=== PATIENT | female | born 1985 | race African-American/Black ===

== ENCOUNTER 2022-03-04 07:20 | Inpatient (IN) | payer MEDICAID ==
[~2022-03-04] VITALS: Ht 165.1 cm; Wt 58.5 kg
[2022-03-04 07:20] VITALS: BP_SYST 142
--- NOTE | 2022-03-04 07:21 | NUR ---
BROUGHT BACK TO BED #8 AND TRIAGED. REPORT GIVEN TO TAWNY
[2022-03-04] MEDS ORDERED: fentaNYL CITRATE/PF 100 MCG/2 ML AMP IM ONE (07:30)
[2022-03-04] MEDS ORDERED: METOCLOPRAMIDE HCL 10 MG/2 ML VIAL IM ONE (07:30)
[2022-03-04] MEDS ORDERED: HALOPERIDOL LACTATE 5 MG/ML VIAL IM ONE (07:30)
[2022-03-04] MEDS ORDERED: DIPHENHYDRAMINE INJ 50 MG/ML VIAL IM ONE ×2 (07:30→08:00)
--- NOTE | 2022-03-04 07:30 | NUR ---
Pt bib parent from home CC hyperemesis pt c/o nausea and continual vomiting episodes since this morning at 0500. Pt is shallow breathing 44 resp. calming measures provided. cap refill <3sec. aaox4, parent is bed side. History of type 1 diabetes. BS 141.
--- NOTE | 2022-03-04 08:00 | NUR ---
ER at bedside examining patient.
--- NOTE | 2022-03-04 08:30 | NUR ---
fDifficulty with IV start, vascular system with collapsed sites, tracks and scar tissue on bilateral extremities. Shunt to right side intact. RLQ dexadron in place. MD notified difficulty with IV start, will give IM injectables.
--- NOTE | 2022-03-04 09:00 | NUR ---
RX fentanyl given per MD orders wasted 50 mg witnessed by Pharmacist.
[2022-03-04 09:05] LABS: BASOPHILS # (AUTO) 0.1 K/uL (0.0-0.2); BASOPHILS % (AUTO) 0.5 % (0.0-2.0); EOSINOPHILS # (AUTO) 0.3 K/uL (0.0-0.4); HEMATOCRIT 36.1 % (36-48); HEMOGLOBIN 12.4 g/dL (12.0-16.0); LYMPHOCYTES # (AUTO) 1.8 K/uL (1.0-5.5); LYMPHOCYTES % (AUTO) 16.4 % (20.5-51.5); MEAN CORPUSCULAR HEMOGLOBIN 28 pg (27-31); MEAN CORPUSCULAR HGB CONC 34 % (32-36); MEAN CORPUSCULAR VOLUME 82 fL (79.0-98.0); MONOCYTES # (AUTO) 1.1 K/uL (0.0-1.0); MONOCYTES % (AUTO) 9.7 % (1.7-9.3); NEUTROPHILS # (AUTO) 7.7 K/uL (1.8-7.7); NEUTROPHILS % (AUTO) 70.4 % (40.0-70.0); PLATELET COUNT (AUTO) 123 K/uL (130-430); RED BLOOD CELL COUNT(AUTO) 4.42 MIL/uL (4.2-6.2); RED CELL DISTRIBUTION WIDTH 16.7 % (9.0-15.0)
[2022-03-04 09:44] LABS: ALANINE AMINOTRANSFERASE 18 U/L (12-78); ANION GAP 5 (5-15); ASPARTATE AMINOTRANSFERASE 17 U/L (10-37); CALCIUM 9.1 mg/dL (8.4-11.0); CHLORIDE 99 mmol/L (98-107); CREATININE 7.09 mg/dL (0.55-1.30); GFR AFRICAN AMERICAN 8 mL/min (>90); GLUCOSE 116 mg/dL (70-99); POTASSIUM 3.7 mmol/L (3.5-5.1); TOTAL BILIRUBIN 0.3 mg/dL (0.0-1.0); UREA NITROGEN, BLOOD 38 mg/dL (8-21)
[2022-03-04 09:45] LABS: ALBUMIN 3.6 g/dL (3.4-4.8)
--- NOTE | 2022-03-04 09:59 | NUR ---
Pt at rest with bed down rails up.
[2022-03-04] MEDS ORDERED: HYDROcodone/ACETAMIN 5-325 MG TAB (NORCO/ VICODIN) PO ONE (10:00)
[2022-03-04] MEDS ORDERED: ACETAMINOPHEN 325 MG TABLET PO ONE (10:00)
[2022-03-04] MEDS ORDERED: ONDANSETRON 4 MG ODT TAB PO ONE (11:30)
--- NOTE | 2022-03-04 11:35 | NUR ---
Pt awake and c/o back pain, given pain medication per dr. madden. Mother Angelina called available at [phone]. call for ride home upon discharge.
--- NOTE | 2022-03-04 13:11 | NUR ---
pt aaox4 resting without acute distress. PICC line consent given.
--- NOTE | 2022-03-04 14:08 | NUR ---
Admit bed requested Patient will be admitted to care of . Admitted to Med surg unit. Diagnosis Intractable Nausea vomiting Inpatient (Yes or No) yes Observation (Yes or No) no Orientation concerns or request close to nursing station (Yes or No) no Covid Status pending On vent or bipap no Isolation requirements no Needs a sitter no From Home (Yes or if No enter name of facility) yes Requires Dialysis (Yes or No) yes Med Rec Completed (Yes of No) yes
--- NOTE | 2022-03-04 15:16 | NUR ---
notified Phenergan IM unavailable injectable. changed to PO.
[2022-03-04] MEDS ORDERED: PROMETHAZINE HCL 25 MG TABLET PO PRN (15:30)
[2022-03-04 15:38] LABS: LIPASE 67 U/L (73-393)
[2022-03-04] MEDS: METOCLOPRAMIDE HCL 10 MG/2 ML VIAL IVP PRN ×2 (16:26→16:39)
[2022-03-04] MEDS: ONDANSETRON HCL 4 MG/2 ML VIAL IVP PRN (16:40)
--- NOTE | 2022-03-04 16:44 | NUR ---
CONSULTATION PAGED/CALLED Reason for Consultation: [] ELEVATED BUN AND CREA Person Who was Notified: [] KRISTAL Consulting Physician: [] DR CONRAD Inspector Watch Assembly Specialty: [] THERAPIST RADIATION Ordering Physician: [] DR SPENCE
--- NOTE | 2022-03-04 16:50 | NUR ---
CONSULTATION PAGED/CALLED Reason for Consultation: [] INTRACTABLE N/V Person Who was Notified: [] KRISTAL Consulting Physician: [] DR GIRALDO Shuttle Buggy Operator Specialty: [] GI Ordering Physician: [] DR SPENCE
[2022-03-04 16:53] VITALS: BP_SYST 155
[2022-03-04] MEDS ORDERED: AMLO5TAB4 PO (16:54)
[2022-03-04] MEDS ORDERED: HYDROcodone/ACETAMIN 5-325 MG TAB (NORCO/ VICODIN) PO PRN (17:00)
--- NOTE | 2022-03-04 17:06 | NUR ---
Patient will be admitted to care of MD Adams. Admitted to Med Surg unit. Will go to room 125 BISH given report, Complete and up to date summary report printed with opportunity for questions.
--- NOTE | 2022-03-04 17:45 | NUR ---
pt admitted to med surg. Pt c/o 03/01 abd pain. pt aox4 able to make needs known. pupils uneven. L eye sluggish. 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 rr even and unlabored. Lung sounds clear. pt has access on R chest. Pt has av shunt to [place]. pt has blood sugar device on abd. no wounds to pt backside. Pulses present. Pt has small open abrasion on ankle. Pt refused pictures to be taken. Pt was prescribed Toradol ivp for sereve pain and was educated that stated she will not get Diluadid or Morphone for pain at this time. All other needs meet at this time. will continue to monitor. ( Had a second nurse in room during assessment and belonging inventory). (Alec Parikh)
[2022-03-04] MEDS: INSULIN REGULAR, HUMAN 100 UNITS/ML, 3 ML VIAL (humuLIN R) SUBCUT PRN ×2 (18:20→22:36)
[2022-03-04] MEDS: KETOROLAC TROMETHAMINE 15 MG VIAL IVP PRN (18:39)
[2022-03-04 19:35] VITALS: BP_SYST 158
--- NOTE | 2022-03-04 21:14 | NUR ---
CONSULTATION CALLED FOR DR. Elver CONRAD FOR CONSULT OF NAUSEA VOMITING ORDER BY DR. SPENCE SPOKE WITH KRISTAL
--- NOTE | 2022-03-04 21:21 | NUR ---
CONSULTATION CALLED FOR DR. Candie YOUNGER FOR CONSULT OF NAUSEA VOMITING DR. GIRALDO IS NATURAL HISTORY COLLECTIONS CURATOR ORDER BY DR. SPENCE SPOKE WITH KRISTAL
[2022-03-04 21:28] LABS: ALBUMIN 3.2 g/dL (3.4-4.8); BILIRUBIN,DIRECT 0.1 mg/dL (0.0-0.3); TOTAL BILIRUBIN 0.3 mg/dL (0.0-1.0)
--- NOTE | 2022-03-04 21:50 | NUR ---
MED PASS, IV=939 BLOOD SUGAR CHECK AT THIS TIME IS 378, 10 UNITS OF REGULAR INSULIN GIVEN PER SSI ORDERED BY MD. PATIENT TOLERATED WELL. WILL CONTINUE TO MONITOR.
[2022-03-05] VITALS: BP_SYST 150
--- NOTE | 2022-03-05 02:30 | NUR ---
nichole talley approximately at this time Addendum: 03/06/22 at 0828 by Francisco Bates RN incorrect dcumentation tis happened 03/06 not 03/05
[2022-03-05] MEDS: KETOROLAC TROMETHAMINE 15 MG VIAL IVP PRN (02:31)
[2022-03-05] MEDS: ONDANSETRON HCL 4 MG/2 ML VIAL IVP PRN (02:31)
--- NOTE | 2022-03-05 02:35 | NUR ---
CRITICAL BLOOD SUGAR= 40 PATIENT VERBALIZED SHE FEELS HYPOGLYCEMIC, BLOOD SUGAR CHECK AT THIS TIME IS 40. ORANGE JUICE GIVEN, BLOOD SUGAR RECHECK IS 118. WILL CONTINUE TO MONITOR. DR. SPENCE PAGED, AWAITING CALL BACK.
--- NOTE | 2022-03-05 05:54 | NUR ---
CRITICAL BLOOD SUGAR= 435 PATIENT VERBALIZED SHE FEELS HYPERGLYCEMIC, BLOOD SUGAR CHECK AT THIS TIME IS 435. 12 UNITS REGULAR INSULIN GIVEN PER SSI ORDERED BY MD. WILL CONTINUE TO MONITOR. DR. SPENCE PAGED THREE TIMES NOW, AWAITING CALL BACK.
[2022-03-05] MEDS: INSULIN REGULAR, HUMAN 100 UNITS/ML, 3 ML VIAL (humuLIN R) SUBCUT PRN ×3 (05:59→16:55)
[2022-03-05] MEDS: METOCLOPRAMIDE HCL 10 MG/2 ML VIAL IVP PRN (06:03)
--- NOTE | 2022-03-05 06:28 | NUR ---
PAGED DR. SPENCE @ 6:28AM FOR RN. REASON: CRITICAL RESULTS
--- NOTE | 2022-03-05 06:50 | NUR ---
CLOSING NOTE ATTEMPTED TO PAGE DR. SPENCE FOUR TIMES FOR FOR PATIENT'S TWO CRITICAL BLOOD SUGARS. AT THIS TIME, IS IS RESTING IN BED, STABLE, NO SIGNS OF RESPIRATORY DISTRESS. CALL LIGHT WITHIN REACH. BED IS LOCKED, ALARMED, AND AT THE LOWEST LEVEL. WILL CONTINUE TO MONITOR UNTIL SHIFT REPORT IS GIVEN AT BEDSIDE TO AM NURSE.
--- NOTE | 2022-03-05 07:03 | NUR ---
receive the patient from the night guard rn in a stable condition with admitting diagnosis of intractable nausea and vomiting . no complain of pain at this time . no sign and symptoms of respiratory distress . will continue to monitor
--- NOTE | 2022-03-05 07:10 | NUR ---
COMMUNICATION W/ DR. JENNYFER BURGER PAGED AT THIS TIME FOR UPDATE ON PATIENT, IT WAS COMMUNICATED TO MD THAT PATIENT IS STILL NAUSEOUS AND VOMITING. MD VERBALIZED THAT HE WILL HAVE HIS G.I. TEAM PICK PATIENT UP IN 30 MINS-1HOUR FOR EGD. CONSENT IS PRINTED, AND ENDORSED TO AM NURSE PUJA.
[2022-03-05 07:43] LABS: BILIRUBIN,URINE NEGATIVE (NEGATIVE); BLOOD, URINE NEGATIVE (NEGATIVE); CLARITY/URINE CLEAR (CLEAR); COLOR,URINE YELLOW (YELLOW); GLUCOSE,URINE 3+ (NEGATIVE); KETONES,URINE NEGATIVE (NEGATIVE); LEUKOCYTE ESTERASE ,URINE NEGATIVE (NEGATIVE); NITRITE, URINE NEGATIVE (NEGATIVE); PROTEIN URINE 3+ (NEGATIVE); UROBILINOGEN,URINE 0.2 (0.2-1.0)
[2022-03-05] MEDS ORDERED: fentaNYL CITRATE/PF 100 MCG/2 ML AMP ONE ×2 (07:49→08:17)
[2022-03-05] MEDS ORDERED: MIDAZOLAM HCL 5 MG/5 ML VIAL ONE ×2 (07:50→08:17)
[2022-03-05 07:54] LABS: BARBITURATE, URINE NEGATIVE (NEG <=200); BENZODIAZEPINE, URINE NEGATIVE (NEG <=150); CANNABINOID, URINE POSITIVE (NEG <=50); COCAINE, URINE NEGATIVE (NEG <=150); METHAMPHETAMINES SCREEN,URINE NEGATIVE (NEG <=500); OPIATE, URINE POSITIVE (NEG <=100); PHENCYCLIDINE SCREEN,URINE NEGATIVE (NEG <=25); UR TRICYCLIC ANTIDEPRESSANTS NEGATIVE (NEG <=300); URINE AMPHETAMINE NEGATIVE (NEG <=500); URINE METHADONE NEGATIVE (NEG <=200); URINE OXYCODONE SCREEN NEGATIVE (NEG <=100); URINE PROPOXYPHENE SCREEN NEGATIVE (NEG <=300)
[2022-03-05] MEDS ORDERED: SIMETHICONE 40 MG/0.6 ML ML ONE (07:58)
[2022-03-05 08:00] VITALS: BP_SYST 146
[2022-03-05] MEDS ORDERED: DIPHENHYDRAMINE INJ 50 MG/ML VIAL ONE (08:00)
--- NOTE | 2022-03-05 08:03 | NUR ---
patient was pickling drum operator for n EGD . tolerated the procedure
[2022-03-05] MEDS ORDERED: PANTOPRAZOLE SODIUM 40 MG/VIAL (PROTONIX) IVP ONE (09:00)
[2022-03-05] MEDS ORDERED: PANTOPRAZOLE SODIUM 40 MG/VIAL (PROTONIX) IVP SCH (09:00)
--- NOTE | 2022-03-05 10:03 | NUR ---
patient has abdominal ultrasound . tolerated the procedure
--- NOTE | 2022-03-05 10:10 | NUR ---
the patient had an order for clear liquid diet
--- NOTE | 2022-03-05 19:01 | NUR ---
will endorse to shift boss rn for continuity of care
--- NOTE | 2022-03-05 19:15 | NUR ---
OPENING NOTES Patient resting in bed - no s/s pain or distress noted. Respirations even and unlabored - head of bed elevated. IV sites patent - no s/s redness, infection, or infiltration. Bed locked and in lowest position. Call light within reach. Bed alarm on.
[2022-03-05 20:00] VITALS: BP_SYST 157
--- NOTE | 2022-03-05 20:12 | NUR ---
DARY GIRALDO AT THIS TIME
--- NOTE | 2022-03-05 20:31 | NUR ---
Dr. Da Silva called back Asked for diet advanced as tolerable Dr. Da Silva orders mechanical soft diet advance as tolerable
[2022-03-06] VITALS (17 sets, daily range): BP systolic 114–212
--- NOTE | 2022-03-06 | NUR ---
around this time hemodialysis finished 2.5 liters out
[2022-03-06] MEDS: KETOROLAC TROMETHAMINE 15 MG VIAL IVP PRN ×2 (02:24→07:37)
[2022-03-06] MEDS: METOCLOPRAMIDE HCL 10 MG/2 ML VIAL IVP PRN ×2 (02:24→13:50)
--- NOTE | 2022-03-06 02:30 | NUR ---
patient vomitting uncontrollably needs new iv its not working
--- NOTE | 2022-03-06 03:30 | NUR ---
PAGED DR. AREN YOUNGER PAGED AT THIS TIME FOR PATIENT'S PRIMARY RN. AWAITING CALL BACK.
--- NOTE | 2022-03-06 04:39 | NUR ---
PAGED DR. AREN YOUNGER PAGED AT THIS TIME FOR PATIENT'S PRIMARY RN, DOCTOR LIMA IS ECDIS N NAVIGATION OPERATOR. AWAITING CALL BACK.
--- NOTE | 2022-03-06 05:00 | NUR ---
new iv inserted 24g r pinky done by Margarito DENG old IV not working
[2022-03-06] MEDS: ONDANSETRON HCL 4 MG/2 ML VIAL IVP PRN ×4 (05:05→22:07)
[2022-03-06] MEDS: INSULIN REGULAR, HUMAN 100 UNITS/ML, 3 ML VIAL (humuLIN R) SUBCUT PRN ×2 (05:30→18:09)
--- NOTE | 2022-03-06 05:33 | NUR ---
checked bloodsugar at this time per glucometer, above [address] kennedy 12u regular insulin already given at this time
--- NOTE | 2022-03-06 06:00 | NUR ---
patient blood sugar above 600 unreadable in glucometer placed bmp stat paging dr. kennedy at this time due to critical lab
--- NOTE | 2022-03-06 06:53 | NUR ---
Dr. Dunaway calls back after paging Dr. Torre critical lab blood sugar above [address] Dunaway stat labs have been drawn awaiting glucose levels Dr. Dunaway orders to follow up with glucose levels and to call back and notify Dr. Adams Awaiting callback from Dr. Adams still
--- NOTE | 2022-03-06 07:00 | NUR ---
Patient in extreme discomfort - moaning from nausea and vomitting brown emesis seemingly getting darker since 219. Dr. Adams and GI doctor been paged and awaiting call back ever since. IV site patent - r pinky 24g SL. Bed locked and in lowest position but patient frequently roaming t he hallway near her room - needs to be frequently reoriented to her room. Addendum: 03/06/22 at 828 by Francisco Bates RN these are closing notes Addendum: 03/06/22 at 828 by Francisco Bates RN blood sugar checked approximately q15min after approximately 0530 to follow up as we wait for callback from doc
--- NOTE | 2022-03-06 07:28 | NUR ---
opening note Patient is awake and alert walking in room and hallway's vomiting coffee ground emesis. rapid was call due to blood sugar unable to read at bed side greater then 600. patient is still actively vomiting anti nausea medication were given prior. at 0750 patient was transferred to ICU report was endorsed to ICU nurse with all patents belongings.
[2022-03-06] MEDS ORDERED: COMMUNICATION ORDER XX ONE ×2 (07:45→11:15)
[2022-03-06 07:46] LABS: CREATININE 5.45 mg/dL (0.55-1.30); POTASSIUM 4.7 mmol/L (3.5-5.1)
--- NOTE | 2022-03-06 07:50 | NUR ---
TO ICU RECEIVED PT IN ROOM 6, VIA BED, SHE IS ALERT AND ANXIOUS, EMESIS BAG TO HER HAND, RETCHING AND COMPLAINING OF STOMACH PAIN. SHE ASKED FOR DILAUDID, BENADRYL AND COMPAZINE. SHE WAS MEDICATED WITH TORADOL AT [facility]PT. PT CAME IN WITH BLOOD SUGAR 747.
[2022-03-06] MEDS ORDERED: INSULIN REGULAR, HUMAN 100 UNITS in NS 99 ML IV PRN ×2 (08:00)
--- NOTE | 2022-03-06 08:09 | NUR ---
PAGED DR. PARKS SAYED STAT FOR RN. [phone] IS THE ONLY NUMBER PROVIDED WITH NO EXCHANGE TO VAULT MAKER CALL. LEFT A DETAILED MESSAGE ON OFFICE NUMBER. WILL LET ICU NURSE KNOW SO A FOLLOW UP CAN BE MADE.
--- NOTE | 2022-03-06 08:16 | NUR ---
IV DRIPS INITIATED INSULIN DRIP TO 5 UNIT/HR, IV IN RIGHT HAND, 24 GAUGE CATHETER.
--- NOTE | 2022-03-06 08:27 | NUR ---
Called Dr. Adrian Page's cell phone and left a message regarding an urgent consult. Called [phone]. Pt now complaining of chest pain right after I hung the phone up.
--- NOTE | 2022-03-06 08:30 | NUR ---
Called Dr. Adams through his exchange at [phone] and requested an urgent call back regarding pts new c/o chest pain. Pt has continuous wretching, screaming "help me, help me, Nurse". Vomiting dark think liquid. Insulin drip infusing at 5u/hr at this time per bedside nurse.
--- NOTE | 2022-03-06 08:42 | NUR ---
MIG WELDER SPOKE TO DR PARKS SAYED. HE ORDERED TO START THE INSULIN DRIP TO 5 UNITS PER HR, AND GIVE 15 UNITS INSULIN IVP BOLUS.
[2022-03-06] MEDS ORDERED: INSULIN REGULAR, HUMAN 10 UNITS/0.1 ML, 3 ML VIAL IVP ONE (08:45)
--- NOTE | 2022-03-06 08:50 | NUR ---
MD DR SPENCE CALLED. REPORTED PT'S CURRENT COMPLAINTS. CHEST PAIN, PAIN MEDS. NEW ORDERS RECEIVED.
[2022-03-06] MEDS ORDERED: MORPHINE 4 MG INJ. 4 MG/ML VIAL IVP PRN (09:00)
[2022-03-06] MEDS ORDERED: ACETAMINOPHEN 325 MG TABLET PO PRN (09:00)
[2022-03-06] MEDS: PANTOPRAZOLE SODIUM 40 MG/VIAL (PROTONIX) IVP SCH (09:23)
--- NOTE | 2022-03-06 09:43 | NUR ---
SENIOR ELECTRICAL PROJECT MANAGER DR BUI CAME IN AND EXAMINED THE PATIENT.
[2022-03-06 09:44] LABS: BASOPHILS # (AUTO) 0.1 K/uL (0.0-0.2); BASOPHILS % (AUTO) 0.7 % (0.0-2.0); EOSINOPHILS # (AUTO) 0.1 K/uL (0.0-0.4); EOSINOPHILS % (AUTO) 0.7 % (0.0-4.0); HEMATOCRIT 34.6 % (36-48); HEMOGLOBIN 11.6 g/dL (12.0-16.0); LYMPHOCYTES % (AUTO) 12.6 % (20.5-51.5); MEAN CORPUSCULAR HEMOGLOBIN 28 pg (27-31); MEAN CORPUSCULAR HGB CONC 34 % (32-36); MEAN CORPUSCULAR VOLUME 84 fL (79.0-98.0); MONOCYTES # (AUTO) 0.4 K/uL (0.0-1.0); MONOCYTES % (AUTO) 4.8 % (1.7-9.3); NEUTROPHILS # (AUTO) 6.6 K/uL (1.8-7.7); NEUTROPHILS % (AUTO) 81.2 % (40.0-70.0); PLATELET COUNT (AUTO) 149 K/uL (130-430); RED BLOOD CELL COUNT(AUTO) 4.11 MIL/uL (4.2-6.2); RED CELL DISTRIBUTION WIDTH 16.9 % (9.0-15.0)
[2022-03-06] MEDS ORDERED: DIPHENHYDRAMINE INJ 50 MG/ML VIAL IVP ONE (09:45)
[2022-03-06 09:46] LABS: WHITE BLOOD COUNT (AUTO) 8.2 K/uL (4.8-10.8)
--- NOTE | 2022-03-06 09:50 | NUR ---
MD DR PARKS-SAYED AT BEDSIDE EXAMINING PATIENT.
[2022-03-06] MEDS: HYDROmorphone 1 MG/ML INJ. CARTRIDGE IM PRN ×2 (09:57→14:22)
[2022-03-06] MEDS ORDERED: NALOXONE HCL 0.4 MG/ML AMP (NARCAN) IVP PRN (10:00)
[2022-03-06] MEDS ORDERED: DIPHENHYDRAMINE HCL 12.5 MG/5 ML UDC PO PRN (10:00)
--- NOTE | 2022-03-06 10:05 | NUR ---
Dr. PARKS Sayed in to see pt and orders left. Pt stopped wretching when doctors came to see her. Remains SR/ST on monitor with BP 161/109 and bedside RN aware of BP. Dr Higgins saw the patient and left orders for BP medications.
--- NOTE | 2022-03-06 10:07 | NUR ---
IV DRIPS FSBS 202 MG/DL, REPORTED TO DR PARKS SAYED. HE ORDERED TO DROP THE INSULIN TO 2 UNIT/HR AND CARRIED OUT.
--- NOTE | 2022-03-06 10:14 | NUR ---
TEST ECHOCARDIOGRAM CREAM GATHERER AT BEDSIDE.
[2022-03-06] MEDS ORDERED: CARV25TA55 PO (10:15)
[2022-03-06] MEDS ORDERED: INSU100V9 SQ (10:15)
--- NOTE | 2022-03-06 10:35 | NUR ---
REST PT WITH EYES CLOSED, COMFORTABLE AT THIS HOUR.
[2022-03-06] MEDS: METOPROLOL TARTRATE 5 MG/5 ML VIAL IVP PRN (11:17)
[2022-03-06] MEDS: NACL 0.9% 1,000 ML IV SCH (11:33)
[2022-03-06] MEDS: DEXTROSE 50% JECT 50 ML DISP.SYRIN IVP PRN (12:18)
--- NOTE | 2022-03-06 12:18 | NUR ---
FSBS 51 MG/DL, TURNED OFF INSULIN DRIP, 1 AMP DEXTROSE 50% GIVEN IVP.
--- NOTE | 2022-03-06 12:33 | NUR ---
FSBS BLOOD SUGAR 161 MG/DL AFTER D50.
--- NOTE | 2022-03-06 13:55 | NUR ---
Pt requested medication for nausea. Medicated with Reglan 10mg IVP. Pt instructed me that I can just push it in. I informed that I am giving it the way our policy indicates. Pt continued dry heaves/ wretching right after giving medication. Bedside RN made aware of medication given.
--- NOTE | 2022-03-06 14:05 | NUR ---
FSBS PAGED DR PARKS SAYED TO NOTIFY HIM OF LATEST BLOOD SUGAR 241 MG/DL.
[2022-03-06] MEDS ORDERED: INSULIN NPH 100 UNITS/ML 10 ML VIAL SUBCUT ONE (14:45)
--- NOTE | 2022-03-06 19:00 | NUR ---
RECEIVED AAO, FOLLOWS COMMANDS, SITTING , ON RA, SAT 97%, NO RESPIRATORY DIFFICULTY. BUSINESS SYSTEMS ADVISOR IS SHOWING NST, DENIES CHEST PAIN. IVF OF NS IS INFUSING AT 50 ML/HR ON THE RIGHT WRIST, GA # 24, POSITIONAL . ABDOMEN SOFT AND NON-DISTENDED.
--- NOTE | 2022-03-06 23:00 | NUR ---
Received report and assumed care from nightshift nurse going home at this time. As per report "Call Dr Maurice when BS >200"
[2022-03-07] VITALS (19 sets, daily range): BP systolic 142–227
[2022-03-07] MEDS: METOCLOPRAMIDE HCL 10 MG/2 ML VIAL IVP PRN ×2 (02:01→14:09)
[2022-03-07] MEDS: HYDROmorphone 1 MG/ML INJ. CARTRIDGE IM PRN ×4 (02:02→14:37)
--- NOTE | 2022-03-07 02:16 | NUR ---
Patient awake and agitated with episodes of vomiting and dry hives. Requesting "pain medication and nausea medication". Dilaudid 1 mg IVP and Reglan 10 mg IVP given as per MD orders. will continue to monitor patient for medication effectiveness.
[2022-03-07] MEDS: ONDANSETRON HCL 4 MG/2 ML VIAL IVP PRN ×2 (06:05→20:53)
[2022-03-07] MEDS: NACL 0.9% 1,000 ML IV SCH (06:08)
--- NOTE | 2022-03-07 06:44 | NUR ---
Blood glucose at this time 295. Dr Christy-Sayed contacted to report blood glucose >200. Per Dr Christy-Sayed "I asked only to report when patient's blood glucose >200 only while patient is on insulin drip. Since the patient is not on insulin drip, that order is discontinued". Please continue to cover blood glucose with already ordered sliding scale plus scheduled NPH.
[2022-03-07] MEDS: INSULIN REGULAR, HUMAN 100 UNITS/ML, 3 ML VIAL (humuLIN R) SUBCUT PRN (06:58)
[2022-03-07] MEDS: INSULIN NPH 100 UNITS/ML 10 ML VIAL SUBCUT SCH (06:58)
[2022-03-07 07:50] LABS: HEMOGLOBIN 11.4 g/dL (12.0-16.0); MEAN CORPUSCULAR HEMOGLOBIN 28 pg (27-31); MEAN CORPUSCULAR HGB CONC 33 % (32-36); MEAN CORPUSCULAR VOLUME 83 fL (79.0-98.0); PLATELET COUNT (AUTO) 170 K/uL (130-430); RED BLOOD CELL COUNT(AUTO) 4.09 MIL/uL (4.2-6.2)
[2022-03-07 07:53] LABS: ALBUMIN 3.8 g/dL (3.4-4.8); CALCIUM 9.1 mg/dL (8.4-11.0); CREATININE 7.36 mg/dL (0.55-1.30); POTASSIUM 4.8 mmol/L (3.5-5.1); THYROID STIMULATING HORMONE 1.92 uIu/mL (0.34-4.82); TOTAL BILIRUBIN 0.4 mg/dL (0.0-1.0)
[2022-03-07] MEDS: PANTOPRAZOLE SODIUM 40 MG/VIAL (PROTONIX) IVP SCH (09:00)
[2022-03-07] MEDS ORDERED: PROCHLORPERAZINE MALEATE 25 MG/SUPP.RECT EA RC PRN (09:15)
[2022-03-07] MEDS ORDERED: CARVEDILOL 12.5 MG TABLET (COREG) PO ONE (09:15)
--- NOTE | 2022-03-07 09:25 | NUR ---
Spoke with Dr. Dunaway and received renal clearance for a midline to be placed. dance instructor RN, bedside RN and MST RN attempted to start an IV, unsuccessfully. Vein finder used.
--- NOTE | 2022-03-07 09:35 | NUR ---
Compazine supp given as ordered for nausea and vomiting.
[2022-03-07] MEDS ORDERED: PROCHLORPERAZINE MALEATE 25 MG/SUPP.RECT EA RC ONE (09:36)
--- NOTE | 2022-03-07 09:48 | NUR ---
Pt refused linen change at this time. Family in to visit and bedside RN updated them in front of the patient.
[2022-03-07] MEDS: DIPHENHYDRAMINE INJ 50 MG/ML VIAL IVP PRN (10:41)
[2022-03-07] MEDS ORDERED: cloNIDine HCL 0.3 MG/24 HR PATCH.TDWK TD ONE (11:00)
[2022-03-07] MEDS ORDERED: cefTRIAXone 1 GM in D5W 50 ML IV SCH (12:00)
[2022-03-07] MEDS ORDERED: PIPERACILLIN/TAZO 2.25G/DEX-IS 50 ML IV ONE (12:30)
[2022-03-07] MEDS ORDERED: GLUCOSE (DEXTROSE) ORAL GEL -Adults PO ONE (12:30)
[2022-03-07 13:43] LABS: ATYPICAL LYMPHOCYTES % 0 % (0-0); BAND % (MANUAL) 1 % (0-6); BASOPHILS % (MANUAL) 0 % (0-2); EOSINOPHILS % (MANUAL) 1 % (0-7); LYMPHOCYTES % (MANUAL) 38 % (20-46); MONOCYTES % (MANUAL) 11 % (0-11)
[2022-03-07] MEDS: METOPROLOL TARTRATE 5 MG/5 ML VIAL IVP PRN (14:16)
--- NOTE | 2022-03-07 16:04 | NUR ---
patient transfer from ICU to 134A with admitting diagnosisi of diabetic ketoacidosis . aox3 with episode of confusion . no complain of pain at this time . no sign and symptoms of respiratory distress . will continue to monitor
[2022-03-07] MEDS: PIPERACILLIN/TAZO 2.25G/DEX-IS 50 ML IV SCH (16:56)
--- NOTE | 2022-03-07 17:20 | NUR ---
Patient transferred to Telemetry Rm. 134A for alternate level of care. Patient tolerated transfer without incident with report given to ISH Ghotra. End of care.
--- NOTE | 2022-03-07 19:02 | NUR ---
will endorse to shift production supervisor rn for continuity of care
--- NOTE | 2022-03-07 20:00 | NUR ---
RECEIVED PATIENT IN BED, A/O X4 , NO DISTRESS NOTED, RIGHT CHEST KARTHIKEYAN CATH INTACT ACCESS TO HD, HUMBLE SHUNT IS NOT READY TO USE, MIDLINE AT SPRING FOR IVF NS AT 50 ML/HR, SITE IS INTACT. NO C/O PAIN AT THIS TIME.
[2022-03-07] MEDS: HYDROmorphone 1 MG/ML INJ. CARTRIDGE IVP PRN (20:51)
[2022-03-07] MEDS: CARVEDILOL 12.5 MG TABLET (COREG) PO SCH (20:54)
--- NOTE | 2022-03-07 22:08 | NUR ---
BS 112 NO COVERAGE AT THIS TIME. SNACK PROVIDED.
[2022-03-08] VITALS: BP_SYST 148
[2022-03-08] MEDS: PIPERACILLIN/TAZO 2.25G/DEX-IS 50 ML IV SCH ×6 (00:49→23:22)
[2022-03-08] MEDS: DIPHENHYDRAMINE INJ 50 MG/ML VIAL IVP PRN ×2 (00:49→21:35)
--- NOTE | 2022-03-08 03:09 | NUR ---
PATIENT IS SLEEPING AFTER BENADRYL GIVING PER PATIENT 'S REQUEST FOR INSOMNIA.
[2022-03-08] MEDS: ONDANSETRON HCL 4 MG/2 ML VIAL IVP PRN ×3 (04:14→21:35)
[2022-03-08] MEDS: HYDROmorphone 1 MG/ML INJ. CARTRIDGE IVP PRN ×4 (04:15→21:34)
--- NOTE | 2022-03-08 04:23 | NUR ---
PATIENT C/O BACK PAIN 8/10 AND NAUSEA, DILAUDID 1 MG AND ZOFRAN 4 MG IVP GIVEN PER ORDER NEEDED. WILL REASSESS LATER FOR THE PAIN.
[2022-03-08] MEDS: NACL 0.9% 1,000 ML IV SCH ×2 (04:25→17:25)
[2022-03-08] MEDS: INSULIN REGULAR, HUMAN 100 UNITS/ML, 3 ML VIAL (humuLIN R) SUBCUT PRN ×3 (06:12→21:33)
[2022-03-08] MEDS: INSULIN NPH 100 UNITS/ML 10 ML VIAL SUBCUT SCH (06:16)
--- NOTE | 2022-03-08 07:30 | NUR ---
OPENING NOTES: PATIENT IS RESTING IN BED QUIETLY. AAOX4 ABLE TO MAKE NEEDS KNOWN. NO ADDITIONAL DISTRESS OR PAIN NOTED AT THIS TIME. EXPLAINED POC AND SHE VERBALIZED UNDERSTANDING. BED IN LOW AND LOCK POSITION. CALL LIGHT AND BEDSIDE TABLE WITHIN REACH. STABLE CONDITION AT THIS TIME.
[2022-03-08 08:00] VITALS: BP_SYST 193
[2022-03-08] MEDS: METOCLOPRAMIDE HCL 10 MG/2 ML VIAL IVP PRN (09:00)
[2022-03-08] MEDS: PANTOPRAZOLE SODIUM 40 MG/VIAL (PROTONIX) IVP SCH (09:00)
[2022-03-08] MEDS: CARVEDILOL 12.5 MG TABLET (COREG) PO SCH ×2 (09:01→21:29)
--- NOTE | 2022-03-08 09:01 | NUR ---
N/V AND PAIN: GAVE ZOFRAN IVP DUE TO C/O N/V (MILD EMESIS NOTED-CLEAR IN COLOR). GAVE DILAUDID 1MG IVP C/O CHEST PAIN NONRADIATING 12/30. Addendum: 03/08/22 at 1838 by [employer] [facility] ISH Salcido RN [place]
[2022-03-08 11:42] VITALS: BP_SYST 163
--- NOTE | 2022-03-08 13:03 | NUR ---
N/V AND PAIN: GAVE ZOFRAN IVP DUE TO C/O NAUSEA. GAVE DILAUDID 1MG IVP C/O B FLANK PAIN 12/30.
[2022-03-08] MEDS: ERYTHROMYCIN BASE 500 MG TABLET PO SCH ×2 (15:37→21:28)
[2022-03-08 17:08] VITALS: BP_SYST 179
--- NOTE | 2022-03-08 17:15 | NUR ---
N/V AND PAIN: GAVE REGLAN IVP DUE TO C/O NAUSEA. GAVE DILAUDID 1MG IVP C/O B FLANK PAIN 12/30. Addendum: 03/08/22 at 1844 by [employer] [facility] ISH Salcido RN [employer] WAS ACTING UP WHEN MEDICATION WAS ABOUT TO BE SAVE. COMPUTER WAS LOADING AND DIDNT SAVE THE MEDICATION ON EMAR THAT IT WAS GIVEN.
[2022-03-08] MEDS: METOPROLOL TARTRATE 5 MG/5 ML VIAL IVP PRN (17:26)
--- NOTE | 2022-03-08 18:38 | NUR ---
CLOSING NOTES: PATIENT IS RESTING IN BED EATING HER DINNER. TOLERATING FULL LIQUID DIET AT THIS TIME. PATIENT HAS ONLY BEEN COMPLAINING OF NAUSEA AND LESS VOMITING. NO ADDITIONAL DISTRESS OR PAIN NOTED. ALL NEEDS MET. STABLE CONDITION AT THIS TIME.
[2022-03-08 19:41] VITALS: BP_SYST 147
--- NOTE | 2022-03-08 21:59 | NUR ---
PATIENT C/O NAUSEA AND BACK PAIN 9/, ZOFRAN 4 MG AND DILAUDID 1 MG IVP GIVEN ORDERED.
[2022-03-09 00:18] VITALS: BP_SYST 152
--- NOTE | 2022-03-09 06:15 | NUR ---
PATIENT C/O NAUSEA AND BACK PAIN 01/30, ZOFRAN 4 MG AND DILAUDID 1 MG IVP GIVEN ORDERED. CALL LIGHT WITHIN REACH, NEEDS MET. ASSISTED FOR ORAL CARE AND PERINEAL CARE , CHANGED ALL LINENS AND GOWN.
[2022-03-09] MEDS: ERYTHROMYCIN BASE 500 MG TABLET PO SCH (06:24)
[2022-03-09] MEDS: INSULIN NPH 100 UNITS/ML 10 ML VIAL SUBCUT SCH (06:24)
[2022-03-09] MEDS: PIPERACILLIN/TAZO 2.25G/DEX-IS 50 ML IV SCH ×2 (06:24→12:04)
[2022-03-09] MEDS: INSULIN REGULAR, HUMAN 100 UNITS/ML, 3 ML VIAL (humuLIN R) SUBCUT PRN ×2 (06:26→12:11)
[2022-03-09] MEDS: HYDROmorphone 1 MG/ML INJ. CARTRIDGE IVP PRN ×5 (06:33→22:30)
[2022-03-09] MEDS: ONDANSETRON HCL 4 MG/2 ML VIAL IVP PRN ×3 (06:33→22:40)
[2022-03-09 08:00] VITALS: BP_SYST 159
[2022-03-09 08:17] LABS: BASOPHILS # (AUTO) 0.1 K/uL (0.0-0.2); BASOPHILS % (AUTO) 0.9 % (0.0-2.0); EOSINOPHILS # (AUTO) 0.3 K/uL (0.0-0.4); EOSINOPHILS % (AUTO) 3.5 % (0.0-4.0); HEMATOCRIT 31.4 % (36-48); HEMOGLOBIN 10.8 g/dL (12.0-16.0); LYMPHOCYTES # (AUTO) 2.4 K/uL (1.0-5.5); LYMPHOCYTES % (AUTO) 26.5 % (20.5-51.5); MEAN CORPUSCULAR HEMOGLOBIN 28 pg (27-31); MEAN CORPUSCULAR HGB CONC 34 % (32-36); MEAN CORPUSCULAR VOLUME 82 fL (79.0-98.0); MONOCYTES # (AUTO) 1.1 K/uL (0.0-1.0); MONOCYTES % (AUTO) 12.5 % (1.7-9.3); NEUTROPHILS # (AUTO) 5.1 K/uL (1.8-7.7); NEUTROPHILS % (AUTO) 56.6 % (40.0-70.0); PLATELET COUNT (AUTO) 190 K/uL (130-430); RED BLOOD CELL COUNT(AUTO) 3.81 MIL/uL (4.2-6.2); RED CELL DISTRIBUTION WIDTH 16.7 % (9.0-15.0)
[2022-03-09 08:32] LABS: CALCIUM 7.6 mg/dL (8.4-11.0); CREATININE 6.32 mg/dL (0.55-1.30); POTASSIUM 3.9 mmol/L (3.5-5.1)
[2022-03-09 08:37] LABS: ALBUMIN 2.9 g/dL (3.4-4.8); TOTAL BILIRUBIN 0.3 mg/dL (0.0-1.0)
[2022-03-09] MEDS: PANTOPRAZOLE SODIUM 40 MG/VIAL (PROTONIX) IVP SCH (10:33)
[2022-03-09] MEDS: CARVEDILOL 12.5 MG TABLET (COREG) PO SCH ×2 (10:34→21:22)
[2022-03-09] MEDS: METOCLOPRAMIDE HCL 10 MG/2 ML VIAL IVP PRN ×2 (10:45→18:16)
[2022-03-09] MEDS: DIPHENHYDRAMINE INJ 50 MG/ML VIAL IVP PRN ×2 (12:04→22:29)
[2022-03-09] MEDS: ERYTHROMYCIN LACTOBIONATE 250 MG in NS 50 ML IV SCH ×2 (14:00→21:24)
[2022-03-09 14:15] VITALS: BP_SYST 172
[2022-03-09] MEDS: METOPROLOL TARTRATE 5 MG/5 ML VIAL IVP PRN (14:23)
--- NOTE | 2022-03-09 15:59 | NUR ---
DIARRHEA: PATIENT C/O LOOSE STOOLS AND REPORTED THAT IT WAS PROBABLY DUE TO THE ABT (PO AND IV). PATIENT REFUSED IV ABT. PAGED DR SANDERS. AWAITING FOR CALL BACK.
[2022-03-09 16:05] VITALS: BP_SYST 129
--- NOTE | 2022-03-09 16:11 | NUR ---
1605 RAPID RESPONSE CALLED. SPO2 98% ON ROOM AIR, HR 72. NO RESPIRATORY DISTRESS NOTED.
--- NOTE | 2022-03-09 17:40 | NUR ---
CROWN AND BRIDGE TECHNICIAN D/T BS 17: 1605: BLOOD SUGAR (BS) 17 PATINE IS COLD, CLAMMY, DIAPHORESIS, AND UNRESPONSIVE. BP 129/79, HR 80, T 96.2, RESP 16, 02 SAT ROOM AIR (RA) 99%. DR MARTIN AND CROWN AND BRIDGE TECHNICIAN TEAM AT THE BEDSIDE 1608: D50 (50ML) IVP GIVEN. AAOX4. RESPONDING TO QUESTION BUT SLEEPY. BS 140. 1611: CROWN AND BRIDGE TECHNICIAN ENDED: DR MARTIN INSTRUCT TO CHECK BS FOR 1HR AND D5W IVF AT 25CC/HR THEN CALL HIM FOR RESULTS. D5W IVF INFUSING AT THIS TIME. BP 185/92, HR 84, T97, RESP 16, 02 SAT RA 99%. PATIENT IS AAOX4. ABLE TO MAKE NEEDS KNOWN. RESPONDING TO QUESTION BUT STILL SLEEPY. 1618: BP 189/99, HR 88, T96.8, RESP 16, 02 SAT RA 99%. PATIENT IS AAOX4. ABLE TO MAKE NEEDS KNOWN. RESPONDING APPROPRIATELY. FULLY AWAKE. 1623: BS 125. PATIENT IS AAOX4. ABLE TO MAKE NEEDS KNOWN. RESPONDING APPROPRIATELY. FULLY AWAKE. PATIENT IS DRINKING 2 CUPS OF APPLE JUICE ([id number]) 1638: BS 138. BP 206/103, HR 92, T97.8, RESP 16, 02 SAT RA 100%. C/O MILD BACK PAIN DUE TO LAYING DOWN. SITTING UP IN THE BED AT THIS TIME. 1653: BS 141. BP 177/101, HR 90, T98, RESP 16, 02 SAT RA 100%. SITTING UP IN THE BED AT THIS TIME. NO ADDITIONAL DISTRESS NOTED. 1705: BS 160. BP 189/106, HR 95, T98.1, RESP 16, 02 SAT RA 100%. NO CHANGED FROM PREVIOUS ASSESSMENT. PATIENT IS DRINKING 2 CUPS OF ORANGE JUICE ([id number]) AT THIS TIME. 1740: BS 215. BP 178/87, HR 92, T98, RESP 16, 02 SAT RA 100%. NO CHANGED FROM PREVIOUS ASSESSMENT. PATIENT IS TAKING TO HER ON THE PHONE.
--- NOTE | 2022-03-09 17:45 | NUR ---
DR SANDERS: SPOKE WITH DR SANDERS REGARDING PATIENT C/O LOOSE STOOLS 5<. GAVE NEW ORDER TO DC ZOSYN AND COLLECT STOOL FOR CDIFF X1.
--- NOTE | 2022-03-09 17:46 | NUR ---
BP HIGH: CALLED DR RAMYA FLEMING DUE TO PATIENT BP IS 178/87, HR 92. ALREADY GAVE METOPROLOL IVP AT 1423 DUE TO HIGH BP WELL BUT IT IS Q6HR PRN. AWAITING FOR CALL BACK.
--- NOTE | 2022-03-09 17:52 | NUR ---
HYDRALAZINE X1: SPOKE WITH DR. BUI AND GAVE NEW ORDER OF HYDRALAZINE 25MG PO X1 DUE TO HIGH BP.
--- NOTE | 2022-03-09 17:55 | NUR ---
HYDRALAZINE: SPOKE WITH DR BUI AND GAVE NEW ORDER OF HYDRALAZINE 25MG PO X1. WILL GIVE RAYMOND WHEN AVAILABLE.
[2022-03-09] MEDS ORDERED: hydrALAZINE HCL 25 MG TABLET PO ONE (18:00)
--- NOTE | 2022-03-09 18:02 | NUR ---
DR. HAIRSTON: PAGED DR PARKS-SAYED REGARDING BLOOD SUGAR FOLLOW UP. AWAITING FOR CALL BACK.
--- NOTE | 2022-03-09 18:25 | NUR ---
LISPRO SLIDING SCALE: SPOKE WITH DR PARKS SAYED AND GAVE BLOOD SUGAR TREND FOR 1 HR AFTER ELECTRONIC ENGINEERING TECHNICIAN EPISODE. PER , NEW SLIDING SCALE USING LISPRO AND DC REGULAR INSULIN SLIDING SCALE. LISPRO ONLY BE GIVEN IF BLOOD SUGAR IS ABOVE 200 AND CALL MD IF BS IS ABOVE 400. ALSO DC D5W IVF THAT WAS ORDERED DURING ELECTRONIC ENGINEERING TECHNICIAN. LATEST BLOOD SUGAR 215 TAKEN AT 1740 . PATIENT IS CURRENTLY EATING DINNER. AAOX4 ABLE TO MAKE NEEDS KNOWN.
--- NOTE | 2022-03-09 19:00 | NUR ---
Received pt from outgoing nurse awake alert and oriented x 4 has ivf NS in progress , midline to Rt upper arm patent.pt is ambulatory says she passed loose stools, awaits a sample for lab analysis. vitals done WNL
[2022-03-09 20:00] VITALS: BP_SYST 154
[2022-03-09] MEDS: NACL 0.9% 1,000 ML IV SCH (20:14)
--- NOTE | 2022-03-09 22:00 | NUR ---
BLood sugar over [address] Adams advised to give Humulin R 14 U sc stat continue with sliding scale vitals done
[2022-03-09] MEDS ORDERED: INSULIN REGULAR, HUMAN 10 UNITS/0.1 ML, 3 ML VIAL SUBCUT ONE (22:15)
--- NOTE | 2022-03-10 | NUR ---
pt c/o upper abdominal pain with nausea. medicated with Dilaudid 1mg.Zofran, she requests Benadryl
[2022-03-10] MEDS: HYDROmorphone 1 MG/ML INJ. CARTRIDGE IVP PRN ×5 (03:59→21:40)
--- NOTE | 2022-03-10 04:30 | NUR ---
PTS BLOOD SUGAR 13 . SHE IS AWAKE AND DROWSY ADMINISTERED IV 50% DEX 50 ML STAT. I OFFERED HER SOME ORANGE JUICE (4 ) A RECHECK BS IS 85. I HAVE NOTIFIED DR HAIRSTON. PHONE ORDERS RECHECK BS AFTER 15 MINS. START A D5NS @50 IF BLOOD SUGAR IS LOW
[2022-03-10 06:00] VITALS: BP_SYST 135
[2022-03-10] MEDS: DEXTROSE 50% JECT 50 ML DISP.SYRIN IVP PRN (06:00)
[2022-03-10] MEDS: ERYTHROMYCIN LACTOBIONATE 250 MG in NS 50 ML IV SCH ×3 (06:01→21:27)
--- NOTE | 2022-03-10 06:15 | NUR ---
DR HAIRSTON ORDER TO REPEAT BLOOD SUGAR AFTER 15 MINS =129. PT IS MORE AWAKE
[2022-03-10] MEDS ORDERED: INSULIN NPH 100 UNITS/ML 10 ML VIAL SUBCUT SCH (07:00)
--- NOTE | 2022-03-10 07:35 | NUR ---
MORNING ROUNDS: PATIENT SLEEPING DURING ROUNDS. IV FLUIDS RUNNING AT RIGHT UPPER ARM,DRESSING CLEAN AND DRY. RIGHT SUBCLAVIAN CATHETER FOR HD,CLEAN AND DRY. CALL LIGHT WITH IN REACH. BED LOCKED AT LOWEST POSITION. NO ACUTE DISTRESS.
[2022-03-10 08:00] VITALS: BP_SYST 138
--- NOTE | 2022-03-10 09:29 | NUR ---
IV PAIN /NAUSEA MEDS: DUE IV DILAUDID AND REGLAN GIVEN PER PATIENT'S REQUEST. NO PROBLEM.
[2022-03-10] MEDS: PANTOPRAZOLE SODIUM 40 MG/VIAL (PROTONIX) IVP SCH (09:31)
[2022-03-10] MEDS: CARVEDILOL 12.5 MG TABLET (COREG) PO SCH ×2 (09:32→21:27)
[2022-03-10] MEDS: INSULIN LISPRO SLIDING SCALE 100 UNITS/ML, 3 ML VIAL (humaLOG) SUBCUT PRN ×3 (11:37→21:54)
[2022-03-10] MEDS ORDERED: HEPARIN SODIUM,PORCINE 5,000 UNITS/ML VIAL MC ONE (11:45)
[2022-03-10 12:39] VITALS: BP_SYST 157
--- NOTE | 2022-03-10 12:40 | NUR ---
PALLETISER OPERATOR ROUNDS: SAYWATSON CAME SAW PATIENT IN THE ROOM. WITH ORDERS GIVEN NOVOLIN N 10 UNITS SC NOW THEN DAILY.
--- NOTE | 2022-03-10 12:54 | NUR ---
Dietitian Recommendations * Continue soft GI (low fiber) diet, as tolerated * If/when medically appropriate, recommend Renal, CCHO diet * Recommend no orange juice d/t ESRD and potassium content in oranges * Enc patient to consume Renal/CCHO safe foods to help manage BG Please refer to nutrition assessment for details, thanks! CC, MPH, RDN
[2022-03-10] MEDS: INSULIN NPH 100 UNITS/ML 10 ML VIAL SUBCUT SCH (12:55)
[2022-03-10] MEDS ORDERED: CHOLECALCIFEROL (VITAMIN D3) 2,000 UNIT TABLET PO ONE (13:15)
--- NOTE | 2022-03-10 13:30 | NUR ---
IV PAIN MEDS: DUE IV DILAUDID GIVEN PER PATIENT'S REQUEST. NO PROBLEM.
--- NOTE | 2022-03-10 13:50 | NUR ---
HD: HEMODIALYSIS STARTED BY BACA. STABLE.
[2022-03-10 16:43] VITALS: BP_SYST 153
--- NOTE | 2022-03-10 17:35 | NUR ---
HD DONE: HD OUT=2.5LITERS .
[2022-03-10] MEDS: NACL 0.9% 1,000 ML IV SCH (17:40)
[2022-03-10] MEDS: ONDANSETRON HCL 4 MG/2 ML VIAL IVP PRN (17:58)
--- NOTE | 2022-03-10 18:02 | NUR ---
IV PAIN/NAUSEA MEDS: C/O ABDOMINAL PAIN AND NAUSEA,DUE IV PAIN /NAUSEA MEDS GIVEN PER REQUEST. NO PROBLEM.
--- NOTE | 2022-03-10 18:37 | NUR ---
EVENING ROUNDS: PATIENT DINNER SERVED.RIGHT SUBCLAVIAN CATHETER ,DRESSING CLEAN AND DRY. CALL LIGHT WITH IN REACH.BED LOCKED AT LOWEST POSITION. COMFORTABLE THIS TIME.
--- NOTE | 2022-03-10 19:00 | NUR ---
i RECEIVED PT RESTING IN BED ALERT ORIENTED X 4. SHE DENIES PAIN .HAS IVF NS @50CC /H .VITALS DONE BPS 112/77 HR 65 RR 18 TEMP 98.8
[2022-03-10 20:00] VITALS: BP_SYST 112
--- NOTE | 2022-03-10 21:00 | NUR ---
ACC 293 HUMALOG 4 UNITS S/C ADMINISTERED .PT C/O ABDOMINAL PAINS ,IV DILAUDID 1MG ADMINISTERED . SHE REQUESTS FOR BENADRYL .
[2022-03-10] MEDS: CHOLECALCIFEROL (VITAMIN D3) 2,000 UNIT TABLET PO SCH (21:32)
[2022-03-10] MEDS: DIPHENHYDRAMINE INJ 50 MG/ML VIAL IVP PRN (23:16)
[2022-03-11] MEDS: ERYTHROMYCIN LACTOBIONATE 250 MG in NS 50 ML IV SCH ×3 (05:52→23:33)
[2022-03-11] MEDS: INSULIN LISPRO SLIDING SCALE 100 UNITS/ML, 3 ML VIAL (humaLOG) SUBCUT PRN ×3 (07:15→23:42)
[2022-03-11 08:02] VITALS: BP_SYST 156
[2022-03-11] MEDS: PANTOPRAZOLE SODIUM 40 MG/VIAL (PROTONIX) IVP SCH (08:14)
[2022-03-11] MEDS: CARVEDILOL 12.5 MG TABLET (COREG) PO SCH ×2 (08:15→21:37)
[2022-03-11] MEDS: CHOLECALCIFEROL (VITAMIN D3) 2,000 UNIT TABLET PO SCH ×2 (08:15→21:37)
[2022-03-11] MEDS: HYDROmorphone 1 MG/ML INJ. CARTRIDGE IVP PRN ×4 (08:16→21:36)
[2022-03-11] MEDS: DIPHENHYDRAMINE INJ 50 MG/ML VIAL IVP PRN ×3 (09:57→21:36)
[2022-03-11] MEDS: ONDANSETRON HCL 4 MG/2 ML VIAL IVP PRN ×2 (10:07→21:36)
[2022-03-11] MEDS: NACL 0.9% 1,000 ML IV SCH (11:44)
[2022-03-11] MEDS: INSULIN NPH 100 UNITS/ML 10 ML VIAL SUBCUT SCH (11:45)
[2022-03-11 11:50] VITALS: BP_SYST 148
[2022-03-11] MEDS: METOPROLOL TARTRATE 5 MG/5 ML VIAL IVP PRN (11:59)
[2022-03-11 12:00] VITALS: BP_SYST 142
--- NOTE | 2022-03-11 12:54 | NUR ---
Educated patient on collecting stool sample. Collection device placed in restroom.
[2022-03-11] MEDS: METOCLOPRAMIDE HCL 10 MG/2 ML VIAL IVP PRN (13:09)
[2022-03-11 16:00] VITALS: BP_SYST 136
--- NOTE | 2022-03-11 19:54 | NUR ---
Report given to zinc plate grainer RN for continuity of care. Patient stable condition. No distress noted.
[2022-03-11 20:00] VITALS: BP_SYST 149
[2022-03-12] VITALS (7 sets, daily range): BP systolic 135–207
[2022-03-12] MEDS: METOPROLOL TARTRATE 5 MG/5 ML VIAL IVP PRN ×3 (00:01→15:47)
[2022-03-12] MEDS: METOCLOPRAMIDE HCL 10 MG/2 ML VIAL IVP PRN ×3 (00:04→16:56)
[2022-03-12] MEDS: DIPHENHYDRAMINE INJ 50 MG/ML VIAL IVP PRN ×4 (01:38→20:21)
[2022-03-12] MEDS: HYDROmorphone 1 MG/ML INJ. CARTRIDGE IVP PRN ×6 (01:39→22:43)
[2022-03-12] MEDS: ONDANSETRON HCL 4 MG/2 ML VIAL IVP PRN ×3 (05:54→22:42)
[2022-03-12] MEDS: ERYTHROMYCIN LACTOBIONATE 250 MG in NS 50 ML IV SCH ×3 (05:59→21:42)
[2022-03-12] MEDS: NACL 0.9% 1,000 ML IV SCH ×2 (07:00→13:53)
--- NOTE | 2022-03-12 08:07 | NUR ---
REFUSED AM LABS AND INSULIN. MEDICATED FOR NAUSEA ORDERED. REPORT GIVEN TO ONCOMING ISH
--- NOTE | 2022-03-12 08:15 | NUR ---
RN OPENING NOTE BLOOD PRESSURE TAKEN WAS ELEVATED WANT TO ASSESS WITH ANOTHER MACHINE PATIENT IS REFUSING.PATIENT IS REFUSING TO TAKE SCHEDULED MEDICATION UNTIL THE [place] MEDICATION TAKES EFFECT. PATIENT EDUCATED CONTINUING EDUCATION SPECIALIST LIGHT FOR ASSISTANCE. CALL LIGHT IS WITH HER. Addendum: 03/12/22 at 0918 by Sabi Franz RN SPOKE WITH DR. PARKS SAYED CHANGED TIME FOR LONG ACTING INSULIN TO 1000 INSTEAD OF 1200 INFORMED THAT PATIENT REFUSED BLOOD DRAW THIS MORNING AND MORNING INSULIN WELL. PATIENT EDUCATED ON CHANGE IN ORDER EDUCATED ON IMPORTANCE.
[2022-03-12] MEDS: PANTOPRAZOLE SODIUM 40 MG/VIAL (PROTONIX) IVP SCH (08:42)
[2022-03-12] MEDS: CHOLECALCIFEROL (VITAMIN D3) 2,000 UNIT TABLET PO SCH ×3 (08:43→20:17)
[2022-03-12] MEDS: CARVEDILOL 12.5 MG TABLET (COREG) PO SCH ×4 (08:46→20:17)
--- NOTE | 2022-03-12 09:15 | NUR ---
PATIENT IS STILL ACTIVELY THROWING UP DOES NOT WANT ORAL MEDICATION. IVP MEDICATION GIVEN FOR BLOOD PRESSURE. EDUCATED NEED TO REASSESS BP IN 30 MIN. PATIENT EDUCATED RISK CONTROL REPRESENTATIVE LIGHT FOR ASSISTANCE. CALL LIGHT IS WITH HER. PATIENT IS CLOSE TO NURSES STATION.
[2022-03-12 10:10] LABS: BASOPHILS # (AUTO) 0.1 K/uL (0.0-0.2); BASOPHILS % (AUTO) 0.8 % (0.0-2.0); EOSINOPHILS # (AUTO) 0.1 K/uL (0.0-0.4); EOSINOPHILS % (AUTO) 1.2 % (0.0-4.0); HEMATOCRIT 30.7 % (36-48); HEMOGLOBIN 10.5 g/dL (12.0-16.0); LYMPHOCYTES # (AUTO) 1.3 K/uL (1.0-5.5); LYMPHOCYTES % (AUTO) 13.3 % (20.5-51.5); MEAN CORPUSCULAR HEMOGLOBIN 28 pg (27-31); MEAN CORPUSCULAR HGB CONC 34 % (32-36); MEAN CORPUSCULAR VOLUME 82 fL (79.0-98.0); MONOCYTES # (AUTO) 0.6 K/uL (0.0-1.0); MONOCYTES % (AUTO) 5.9 % (1.7-9.3); NEUTROPHILS % (AUTO) 78.8 % (40.0-70.0); PLATELET COUNT (AUTO) 203 K/uL (130-430); RED BLOOD CELL COUNT(AUTO) 3.73 MIL/uL (4.2-6.2); RED CELL DISTRIBUTION WIDTH 16.4 % (9.0-15.0); WHITE BLOOD COUNT (AUTO) 10.1 K/uL (4.8-10.8)
--- NOTE | 2022-03-12 10:17 | NUR ---
HEMODIALYSIS PATIENT IS CURRENTLY RECEIVING HEMODIALYSIS, STILL ACTIVELY Addendum: 03/12/22 at 1026 by Sabi Franz RN PATIENT IS STILL ACTIVELY THROWING UP, PATIENTS ACCU CHECK AT BEDSIDE DONE IS 426 PATIENT WAS UNABLE TO EAT BREAKFAST PAGING DR AL-SAYED FOR ORDERS REGARDING LONG ACTING INSULIN. PATIENT'S BLOOD PRESSURE IS STILL ELEVATED BEING MONITORED BY HEMODIALYSIS NURSE AND MACHINE. PATIENT IS AWAKE AND ALERT EMESIS CONTAINER IS WITH NURSE. MEDICATED FOR PAIN REQUESTED BY PATIENT. PATIENT WAS EDUCATED STOPPER MAKER HELPER LIGHT FOR ASSISTANCE. CALL LIGHT IS WITH PATIENT.
[2022-03-12 10:35] LABS: CREATININE 6.96 mg/dL (0.55-1.30); POTASSIUM 4.5 mmol/L (3.5-5.1)
[2022-03-12] MEDS: INSULIN NPH 100 UNITS/ML 10 ML VIAL SUBCUT SCH (10:46)
--- NOTE | 2022-03-12 10:53 | NUR ---
HIGH ALERT NOTE: Called Dr. PARKS SAYED back at PHONE NUMBER identified within the medical roster to verify physician authenticity.
[2022-03-12] MEDS ORDERED: INSULIN Lispro 100 UNITS/ML, 3 ML VIAL (humaLOG) SUBCUT ONE (11:00)
[2022-03-12] MEDS ORDERED: HEPARIN SODIUM,PORCINE 5,000 UNITS/ML VIAL MC PRN (11:30)
--- NOTE | 2022-03-12 13:58 | NUR ---
DARY SIMPSON FOR ELEVATED BLOOD PRESSURE. Addendum: 03/12/22 at 1429 by Sabi Franz RN spoke with dr. cat duke to give morning dose of blood pressure medication
--- NOTE | 2022-03-12 15:52 | NUR ---
blood pressure is still elevated medicated per prn order. patient is awake and alert sitting up in bed, no nausea or vomiting noted. patient educated monorail charger operator light for assistance. call light is with her. no other needs at this time.
--- NOTE | 2022-03-12 16:30 | NUR ---
Nutrition F/U Admitting Diagnosis Intractable nausea and vomiting Reviewed Pertinent Medical/Surgical Hx Medical Record Patient Medical History Comment: 36y female who presented to ED c/o nausea and continual vomiting. PMHx includes T1DM, ESRD on HD (MWF), AV shunt HUMBLE, glucose monitor on abdomen, L eye blindness Subjective Information: RD met w/ pt at bedside this afternoon. Pt appeared to not be feeling well, and attested to having issues w/ N/V all day today. RD inquired about any foods or beverages the pt may be interested in receiving at dinner, however, pt was not interested. Per EMR review, pt is on RA; PO intakes have been fair w/ average of 63% x4 meal records since 03/10; abd is soft and tender w/ active bowel sounds; LBM x2 03/10; pt's BP readings have been elevated. Pt is not meeting nutritional needs. Current Diet Order/Nutrition Support: Soft (low-fiber/bland) x3 days Patient/Significant Other Able To Verbalize Education Provided Not Indicated Pertinent Medications: Reviewed Pertinent Labs: BG 497 H, BUN 36 H, CRE 6.96 H, POC BG 196 H, VIT D 15.3 L Height (Feet) 5 feet Height (Inches) 5.00 inches Weight (Pounds) 130 pounds -- stable since 03/10 Patient Weight 58.967 kg Body Mass Index 21.63 kg/m2 %IBW 104 [place]/Adjusted Body Weight 125#/ 57kg Recent Weight Change No Weight Status Appropriate Gastrointestinal Symptoms Nausea Vomiting Usual Diet At Home Renal Skin Integrity Comment: Mihai 18: L posterior ankle w/ dry scab per EMR review Current % PO Fair (50-74%) Estimated Energy Expenditure (kcals/day) 9764-1066 (25-30 kcal/kg for ESRD on HD) Estimated Protein Required (g/day) 70-89 (1.2-1.5 g/lg for ESRD on HD) Estimated Fluid Required (l/day) per MD d/t renal dz Problem/Etiology/Signs/Symptoms * Altered nutrition-related lab values r/t endocrine dysfunction, renal dysfunction a/e/b elevated lab values: BG, POC BG, BUN, Cre. *Ongoing * Inadequate oral intake r/t nausea and vomiting a/e/b patient refusing meals during admit; PO intake <85% avg. *Ongoing Expected Outcomes/Goals PO intake provides >85% estimated nutrient needs, nutrition-related labs trending WNL, weight maintenance/skin integrity, BM q1-3 days Dietitian Recommendations * Continue Soft (low-fiber/bland) diet * If/when medically appropriate, consider Renal, CCHO diet * No orange juice d/t ESRD and potassium content in oranges * Encourage pt to consume Renal/CCHO-safe foods to help manage BG Follow Up High Risk: F/U in 2-3 days
--- NOTE | 2022-03-12 16:35 | NUR ---
Dietitian Recommendations * Continue Soft (low-fiber/bland) diet * If/when medically appropriate, consider Renal, CCHO diet * No orange juice d/t ESRD and potassium content in oranges * Encourage pt to consume Renal/CCHO-safe foods to help manage BG LP, RD Please refer to Nutrition F/U for details.
--- NOTE | 2022-03-12 16:41 | NUR ---
Dr. Bev Hirsch Paged Dr. Bev hirsch spoke with md and received orders for elevated blood pressure.
[2022-03-12] MEDS ORDERED: cloNIDine HCL 0.1 MG TABLET PO PRN (16:45)
[2022-03-12] MEDS ORDERED: cloNIDine HCL 0.1 MG TABLET PO ONE (17:00)
--- NOTE | 2022-03-12 17:02 | NUR ---
antinausea medication given per order. patient also accu check done no coverage needed. patient is sitting up in bed. call light is with her educated to use for assistance.
--- NOTE | 2022-03-12 17:56 | NUR ---
medicated for elevated blood pressure. patient is awake and alert walking in room. patient is has no other needs at this time.
--- NOTE | 2022-03-12 18:46 | NUR ---
rn closing note patients blood pressure with in normal limits. patient medicated for pain as ordered. patient is awake and alert sitting up in bed. patient is on phone. no signs of any distress, breathing is equal and non labored. patient educated plant controls specialist light for assistance. call light is with her.
--- NOTE | 2022-03-12 19:00 | NUR ---
I recieved awake and oriented x 4. she has IV NS @50CC/H through a right PICC line .vitals done Elevated BPs on medication
[2022-03-12] MEDS: cloNIDine HCL 0.1 MG TABLET PO SCH (20:16)
[2022-03-12] MEDS: INSULIN LISPRO SLIDING SCALE 100 UNITS/ML, 3 ML VIAL (humaLOG) SUBCUT PRN (21:48)
[2022-03-13] VITALS (7 sets, daily range): BP systolic 125–167
[2022-03-13] MEDS: DIPHENHYDRAMINE INJ 50 MG/ML VIAL IVP PRN ×3 (02:24→13:52)
[2022-03-13] MEDS: ERYTHROMYCIN LACTOBIONATE 250 MG in NS 50 ML IV SCH ×2 (06:00→13:41)
--- NOTE | 2022-03-13 07:30 | NUR ---
OPENING NOTE Patient received from nightshift nurse. Patient resting in bed, noted elevated blood pressure, will administer scheduled BP medications. No pain noted at this time, No sob, no distress. Patient has PICC to SPRING patent and on SL. Patient also has Subclavian to Right arm for dialysis access. Patient A/O x 4 aqnd able to use restroom on her own. All needs met at this time. Bed is locked and in lowest position, will continue to monitor.
[2022-03-13] MEDS: CARVEDILOL 12.5 MG TABLET (COREG) PO SCH (08:24)
[2022-03-13] MEDS: cloNIDine HCL 0.1 MG TABLET PO SCH ×2 (08:24→14:55)
[2022-03-13] MEDS: CHOLECALCIFEROL (VITAMIN D3) 2,000 UNIT TABLET PO SCH (08:24)
[2022-03-13] MEDS: PANTOPRAZOLE SODIUM 40 MG/VIAL (PROTONIX) IVP SCH (08:35)
[2022-03-13] MEDS: HYDROmorphone 1 MG/ML INJ. CARTRIDGE IVP PRN ×2 (08:35→13:52)
[2022-03-13] MEDS: INSULIN NPH 100 UNITS/ML 10 ML VIAL SUBCUT SCH (10:06)
--- NOTE | 2022-03-13 11:00 | NUR ---
PAGED Pagebharath Adams regarding high blood sugar reading. Gave patient 6 units of insulin and awaiting further instructions. Will wait for MD to call me back.
[2022-03-13] MEDS: INSULIN LISPRO SLIDING SCALE 100 UNITS/ML, 3 ML VIAL (humaLOG) SUBCUT PRN ×2 (11:21→16:56)
--- NOTE | 2022-03-13 12:00 | NUR ---
Patient Rounds Patient resting in bed with family at bedside. No pain, No sob, no distress noted at this time. Paged MD Adams due to and elevated BS reading, awaiting call back. All needs met at this time. Bed is locked and in lowest position, will continue to monitor.
--- NOTE | 2022-03-13 14:28 | NUR ---
MD WALLER Sent second paged to for patient's elevated BS reading. Awaiting call back.
--- NOTE | 2022-03-13 15:49 | NUR ---
MD Christy-Sayed Per MD Romaned patient is good for Discharge, just needs to wait on Dr Singh's final say. MD Singh was paged twice today with no call back for Blood sugar but MD Christy-Sayed gave new orders. Will discuss with MD Singh tomorrow if patient is able to be discharged. Will endorse to oncoming shift.
--- NOTE | 2022-03-13 16:00 | NUR ---
Patient Rounds Patient resting in bed, Al-Sayed met with patient at bedside. gave new orders for Insulin Humalog. No pain, No sob, no distress noted at this time. All needs met at this time. Bed is locked and in lowest position, will continue to monitor.
[2022-03-13] MEDS ORDERED: INSULIN Lispro 100 UNITS/ML, 3 ML VIAL (humaLOG) SUBCUT SCH (17:00)
--- NOTE | 2022-03-13 18:43 | NUR ---
CLOSING NOTE Patient resting in bed. No pain, No sob, no distress, noted. Patient has PICC to SPRING patent and on SL. Patient also has Subclavian to Right arm for dialysis access, MWF. Patient A/O x 4 and able to use restroom on her own. All needs met at this time. Bed is locked and in lowest position, will endorse to nightshift nurse.
--- NOTE | 2022-03-13 19:00 | NUR ---
RECEIVED PATIENT AAO, FOLLOWS COMMANDS AND AMBULATES WELL. AHE IS FOR DISCHARGE TONIGHT. ALL PAPERS AND INSTRUCTIONS WERE GIVEN TO THE PATIENT BY DAY SHIFT RN. BEFORE DISCHARGE, RIGHT UPPER MIDLINE WILL BE REMOVED.
--- NOTE | 2022-03-13 19:07 | NUR ---
Discharge MD Adams made order to discharge patient. Patient signed paperwork and her ride will be here in an hour. Just need oncoming shift to remove PICC line for Discharge and ID band. Will endorse to night order selector nurse.
--- NOTE | 2022-03-13 20:00 | NUR ---
PATIENT WHEELED OUT FOR DISCHARGE, ALL BELONGINS ARE WITH PATIENT. IV SITE DRY. PERMACATH INTACT AND DRY. PATIENT HAS STEADY GAIT.
== END 2022-03-13 20:12 | disposition home or self-care (01) | DRG 241 ==
LOC: SED 07:20 → SMU 14:32 → SIC 03-06 08:07 → STU 03-07 18:22
PROVIDERS: ADMIT Family Medicine; ATTEND Family Medicine
PROC: 5A1D70Z Performance of Urinary Filtration, Intermittent, Less than 6 Hours Per Day (ICD-10-PCS; 2022-03-05)
PROC: 0DB68ZX Excision of Stomach, Via Natural or Artificial Opening Endoscopic, Diagnostic (ICD-10-PCS; principal; 2022-03-05 08:00)
PROC: 5A1D70Z Performance of Urinary Filtration, Intermittent, Less than 6 Hours Per Day (ICD-10-PCS; 2022-03-08)
PROC: 5A1D70Z Performance of Urinary Filtration, Intermittent, Less than 6 Hours Per Day (ICD-10-PCS; 2022-03-10)
PROC: 5A1D70Z Performance of Urinary Filtration, Intermittent, Less than 6 Hours Per Day (ICD-10-PCS; 2022-03-12)
DX: K29.70 Gastritis, unspecified, without bleeding (principal); E10.10 Type 1 diabetes mellitus with ketoacidosis without coma; E10.649 Type 1 diabetes mellitus with hypoglycemia without coma; I12.0 Hypertensive chronic kidney disease with stage 5 chronic kidney disease or end stage renal disease; E87.1 Hypo-osmolality and hyponatremia; E10.22 Type 1 diabetes mellitus with diabetic chronic kidney disease; D72.829 Elevated white blood cell count, unspecified; E55.9 Vitamin D deficiency, unspecified; E10.43 Type 1 diabetes mellitus with diabetic autonomic (poly)neuropathy; K31.84 Gastroparesis; N18.6 End stage renal disease; F12.90 Cannabis use, unspecified, uncomplicated; G89.4 Chronic pain syndrome; Z20.822 Contact with and (suspected) exposure to COVID-19; I16.9 Hypertensive crisis, unspecified; Z99.2 Dependence on renal dialysis; Z90.49 Acquired absence of other specified parts of digestive tract; Z79.899 Other long term (current) drug therapy; Z79.4 Long term (current) use of insulin
CPT/HCPCS: 36415; 43239; 71045; 76700-TC; 80048; 80053; 80061; 80076; 80307; 81003; 82306; 82962; 83690; 83735; 83880; 84443; 84484; 84702; 85007; 85025; 85027; 87040; 87081; 88305; 88312; 88313; 90935; 90937; 93005; 93306; 96372; 99285; C1751; C9113; G0378; J0696; J1170; J1200; J1364; J1630; J1644; J1815; J1885; J2250; J2270; J2405; J2543; J2765; J3010; J3490; J7030; J7050; J7060; J7120; Q0162; Q0169

== ENCOUNTER 2022-03-17 04:38 | Emergency (ER) | payer MEDICAID ==
[~2022-03-17] VITALS: Ht 165.1 cm; Wt 54.4 kg
[2022-03-17 05:03] VITALS: BP_SYST 189
--- NOTE | 2022-03-17 05:10 | NUR ---
Patient triaged and placed in room 6. VSS and patient appears in no acute distress at this time. Accompanied by family member. MD Sanchez notified of need for MSE. Triage report given to [facility] Pratt
--- NOTE | 2022-03-17 05:27 | NUR ---
CARE TO BE ASSUMED BY [facility] FIELD.
[2022-03-17] MEDS ORDERED: ONDANSETRON HCL 4 MG/2 ML VIAL IVP ONE (06:15)
[2022-03-17] MEDS ORDERED: DIPHENHYDRAMINE INJ 50 MG/ML VIAL IVP ONE (06:15)
[2022-03-17] MEDS ORDERED: HYDROmorphone 1 MG/ML INJ. CARTRIDGE IVP ONE (06:15)
--- NOTE | 2022-03-17 06:20 | NUR ---
ER Dr.De Whatley at bedside examining patient.
[2022-03-17 06:58] LABS: BASOPHILS # (AUTO) 0.1 K/uL (0.0-0.2); BASOPHILS % (AUTO) 1.2 % (0.0-2.0); EOSINOPHILS # (AUTO) 0.3 K/uL (0.0-0.4); EOSINOPHILS % (AUTO) 3.3 % (0.0-4.0); HEMATOCRIT 31.7 % (36-48); HEMOGLOBIN 10.9 g/dL (12.0-16.0); LYMPHOCYTES % (AUTO) 31.8 % (20.5-51.5); MEAN CORPUSCULAR HEMOGLOBIN 28 pg (27-31); MEAN CORPUSCULAR HGB CONC 35 % (32-36); MEAN CORPUSCULAR VOLUME 82 fL (79.0-98.0); MONOCYTES # (AUTO) 0.8 K/uL (0.0-1.0); MONOCYTES % (AUTO) 8.9 % (1.7-9.3); NEUTROPHILS # (AUTO) 5.1 K/uL (1.8-7.7); NEUTROPHILS % (AUTO) 54.8 % (40.0-70.0); PLATELET COUNT (AUTO) 195 K/uL (130-430); RED BLOOD CELL COUNT(AUTO) 3.87 MIL/uL (4.2-6.2); WHITE BLOOD COUNT (AUTO) 9.3 K/uL (4.8-10.8)
[2022-03-17 07:11] LABS: CREATININE 6.82 mg/dL (0.55-1.30); POTASSIUM 4.5 mmol/L (3.5-5.1)
[2022-03-17 07:18] LABS: ALBUMIN 3.6 g/dL (3.4-4.8); TOTAL BILIRUBIN 0.1 mg/dL (0.0-1.0)
--- NOTE | 2022-03-17 07:26 | NUR ---
RECEIVED PT FROM [facility] FIELD. PT IS RESTING PEACEFULLY. VSS. NO S/S OF PAIN OR DISCOMFORT. BED IN LOWEST POSITION. SIDERAILS UP X2.
[2022-03-17] MEDS ORDERED: ONDA-8 TL (07:28)
--- NOTE | 2022-03-17 08:00 | NUR ---
Patient given written and verbal discharge instructions and verbalizes understanding. ER MD discussed with patient the results and treatment provided. Patient in stable condition. ID arm band removed. Rx of ZOFRAN S/L given. Patient educated on pain management and to follow up with PMD. Pain Scale 2/10. Opportunity for questions provided and answered. Medication side effect fact sheet provided.
[2022-03-17 08:02] VITALS: BP_SYST 159
--- NOTE | 2022-03-17 08:07 | NUR ---
PT GIVEN BREAKFAST AND 3 APPLE JUICE DRINKS PRIOR TO DISCHARGE.
== END 2022-03-17 08:00 | disposition home or self-care (01) ==
LOC: SED 04:38
DX: R10.13 Epigastric pain (principal); R11.2 Nausea with vomiting, unspecified; E10.65 Type 1 diabetes mellitus with hyperglycemia; R73.9 Hyperglycemia, unspecified; E10.22 Type 1 diabetes mellitus with diabetic chronic kidney disease; N18.6 End stage renal disease; Z99.2 Dependence on renal dialysis; Z79.899 Other long term (current) drug therapy
CPT/HCPCS: 99284; 96374; 96375; 80053; 83690; 85025; 84484; 36415; 93005; J1200; J2405; J1170

== ENCOUNTER 2022-03-17 15:47 | Emergency (ER) | payer MEDICAID ==
[~2022-03-17] VITALS: Ht 162.6 cm; Wt 54.4 kg
[2022-03-17 15:47] VITALS: BP_SYST 170
[~2022-03-17 15:47] MED LIST: ONDA-8 TL
--- NOTE | 2022-03-17 15:50 | NUR ---
Patient triaged and placed in waiting room. Accompanied by SELF, awaiting available bed, and MD notified of need for MSE.
--- NOTE | 2022-03-17 16:32 | NUR ---
Patient to ER bed 8 to gown for evaluation. Side rails up. Report given to .
--- NOTE | 2022-03-17 16:40 | NUR ---
REPORT RECEIVED, CARE ASSUMED, PT ASSESSED. PT STATES THAT SHE HAS HAD CONT N/V SINCE BEING DISCHARGED THIS AM. STATES THAT SHE DIDNT GO TO DIALYSIS BECAUSE SHE WAS TOO SICK.
--- NOTE | 2022-03-17 16:50 | NUR ---
THIS RN IN TO ADM PT HALDOL, PT STATES THAT SHE DIDNT WANT THE HALDOL, STATED THAT SHE WANTS ZOFRAN, BENADRYL AND DILAUDID. EXPLAINED TO PT THAT HALDOL IS AN EFFECTIVE PAIN RELIEVING MEDICATION AND THAT IT WOULD LAST LONGER AN IM MEDICATION, PT REFUSED MED DESPITE REPEATED EXPLANATION AND RATIONALE. STATES THAT SHE WANTS TO SIGN OUT AMA. DR GARCIA ADVISED.
[2022-03-17] MEDS ORDERED: HALOPERIDOL LACTATE 5 MG/ML VIAL IM ONE (17:00)
--- NOTE | 2022-03-17 17:00 | NUR ---
AMA PAPERPatient does not wish to proceed with medical care recommended by DR GARCIA. Patient given information related to possible complications, up to and including , which could occur as a result of leaving hospital at this time. Patient verbalizes understanding of risks involved leaving against medical advice. Patient has signed AMA form.
== END 2022-03-17 17:00 | disposition left against medical advice (07) ==
LOC: SED 15:47
DX: R10.13 Epigastric pain (principal); R11.10 Vomiting, unspecified; E11.9 Type 2 diabetes mellitus without complications; Z79.899 Other long term (current) drug therapy
CPT/HCPCS: 99283; J1630

== ENCOUNTER 2022-03-23 11:08 | Emergency (ER) | payer MEDICAID ==
[~2022-03-23] VITALS: Ht 162.6 cm; Wt 68.0 kg
[2022-03-23 11:36] VITALS: BP_SYST 203
[2022-03-23] MEDS ORDERED: MORPHINE 4 MG INJ. 4 MG/ML VIAL IVP ONE ×2 (15:45→17:30)
[2022-03-23] MEDS ORDERED: DIPHENHYDRAMINE INJ 50 MG/ML VIAL IVP ONE ×2 (15:45→17:30)
[2022-03-23] MEDS ORDERED: NACL 0.9% 1,000 ML IV ONE ×2 (15:45→17:15)
[2022-03-23] MEDS ORDERED: ONDANSETRON HCL 4 MG/2 ML VIAL IVP ONE (15:45)
[2022-03-23 16:11] LABS: PLATELET COUNT (AUTO) 239 K/uL (130-430); WHITE BLOOD COUNT (AUTO) 11.3 K/uL (4.8-10.8)
[2022-03-23 16:17] LABS: BASOPHILS # (AUTO) 0.1 K/uL (0.0-0.2); BASOPHILS % (AUTO) 0.7 % (0.0-2.0); EOSINOPHILS % (AUTO) 0.2 % (0.0-4.0); HEMATOCRIT 27.9 % (36-48); HEMOGLOBIN 9.8 g/dL (12.0-16.0); LYMPHOCYTES % (AUTO) 8.9 % (20.5-51.5); MEAN CORPUSCULAR HEMOGLOBIN 29 pg (27-31); MEAN CORPUSCULAR HGB CONC 35 % (32-36); MEAN CORPUSCULAR VOLUME 82 fL (79.0-98.0); MONOCYTES # (AUTO) 0.6 K/uL (0.0-1.0); NEUTROPHILS # (AUTO) 9.6 K/uL (1.8-7.7); NEUTROPHILS % (AUTO) 85.2 % (40.0-70.0); RED BLOOD CELL COUNT(AUTO) 3.41 MIL/uL (4.2-6.2); RED CELL DISTRIBUTION WIDTH 16.6 % (9.0-15.0)
[2022-03-23 16:22] LABS: ANION GAP 9 (5-15); CALCIUM 9.5 mg/dL (8.4-11.0); CHLORIDE 106 mmol/L (98-107); CREATININE 5.98 mg/dL (0.55-1.30); GLUCOSE 205 mg/dL (70-99); POTASSIUM 4.3 mmol/L (3.5-5.1); UREA NITROGEN, BLOOD 44 mg/dL (8-21)
[2022-03-23 16:25] LABS: ACETONE, SERUM NEGATIVE (NEGATIVE)
[2022-03-23 16:27] LABS: ALANINE AMINOTRANSFERASE 37 U/L (12-78); ASPARTATE AMINOTRANSFERASE 19 U/L (10-37); LIPASE 68 U/L (73-393); TOTAL BILIRUBIN 0.3 mg/dL (0.0-1.0)
[2022-03-23] MEDS ORDERED: HALOPERIDOL LACTATE 5 MG/ML VIAL IVP ONE (17:30)
[2022-03-23] MEDS ORDERED: LABETALOL HCL 20 MG/4 ML CARTRIDGE IVP ONE (17:45)
[2022-03-23] MEDS ORDERED: ONDA-8 TL (18:19)
[2022-03-23] MEDS ORDERED: PROMETHAZINE INJ.Non-Formulary 25 MG/ML AMP IVP ONE (19:00)
[2022-03-23] MEDS ORDERED: PROCHLORPERAZINE EDISYLATE 10 MG/2 ML VIAL IVP ONE (19:00)
[2022-03-23 19:16] VITALS: BP_SYST 189
[2022-03-24] MEDS ORDERED: CARV3.1246 PO (06:32)
[2022-03-24] MEDS ORDERED: INSU100V SQ (06:32)
== END 2022-03-23 19:16 | disposition home or self-care (01) ==
LOC: SED 11:08
DX: K31.84 Gastroparesis (principal); R11.2 Nausea with vomiting, unspecified; I12.9 Hypertensive chronic kidney disease with stage 1 through stage 4 chronic kidney disease, or unspecified chronic kidney disease; N18.9 Chronic kidney disease, unspecified; Z87.448 Personal history of other diseases of urinary system; Z79.899 Other long term (current) drug therapy
CPT/HCPCS: 99284; 96374; 96375; 96361; 80053; 82009; 82962; 83690; 85025; 36415; 96376; J1200; J1630; J2405; J0780; J2270; J7030; J2550

== ENCOUNTER 2022-03-23 23:34 | Inpatient (IN) | payer MEDICAID ==
[~2022-03-23] VITALS: Ht 165.1 cm; Wt 60.0 kg
[2022-03-23 23:36] VITALS: BP_SYST 170
--- NOTE | 2022-03-23 23:40 | NUR ---
PATIENT SEEN HERE AND DISCHARGED FOR SAME COMPLAINT EARLIER TODAY. PATIENT STATES N/V X A FEW DAYS. PATIENT CONTINUES TO NOT LISTEN TO STAFF THAT SHE MUST STAY STILL FOR VITALS, PATIENT ADAMENT ABOUT NEEDING TO SEE A PHYSICIAN. EXPLAINED TO PATIENT THAT VITALS MUST BE DONE TO BE TRIAGED PRIOR TO SEEING PHYSICIAN.
[2022-03-24 00:16] LABS: BASOPHILS % (AUTO) 0.3 % (0.0-2.0); HEMATOCRIT 27.9 % (36-48); HEMOGLOBIN 9.5 g/dL (12.0-16.0); LYMPHOCYTES # (AUTO) 0.9 K/uL (1.0-5.5); LYMPHOCYTES % (AUTO) 8.6 % (20.5-51.5); MEAN CORPUSCULAR HEMOGLOBIN 28 pg (27-31); MEAN CORPUSCULAR HGB CONC 34 % (32-36); MEAN CORPUSCULAR VOLUME 83 fL (79.0-98.0); MONOCYTES # (AUTO) 0.4 K/uL (0.0-1.0); MONOCYTES % (AUTO) 3.9 % (1.7-9.3); NEUTROPHILS # (AUTO) 9.5 K/uL (1.8-7.7); NEUTROPHILS % (AUTO) 87.2 % (40.0-70.0); PLATELET COUNT (AUTO) 243 K/uL (130-430); RED BLOOD CELL COUNT(AUTO) 3.37 MIL/uL (4.2-6.2); RED CELL DISTRIBUTION WIDTH 17.3 % (9.0-15.0); WHITE BLOOD COUNT (AUTO) 10.9 K/uL (4.8-10.8)
[2022-03-24 00:26] LABS: CALCIUM 9.4 mg/dL (8.4-11.0); CREATININE 6.25 mg/dL (0.55-1.30)
[2022-03-24 00:32] LABS: TOTAL BILIRUBIN 0.6 mg/dL (0.0-1.0)
--- NOTE | 2022-03-24 02:00 | NUR ---
Patient to ER bed 7 to gown for evaluation. Side rails up. Report given to Iker Michael(pema).
--- NOTE | 2022-03-24 02:05 | NUR ---
PATIENT PLACED ON CARE ATTENDANT. PATIENT QUIET UNTIL NURSING STAFF APPROACHED HER AND THEN STARTED MAKING HERSELF VOMIT. PATIENT STATES SHE NEEDS IV AND DRUGS IMMEDIATELY. PATIENT UNABLE TO PROVIDE URINE SAMPLE AT THIS TIME DUE TO DIALYSIS.
--- NOTE | 2022-03-24 02:39 | NUR ---
COVID AND MRSA DROPPED OFF TO LAB AT 2:08
--- NOTE | 2022-03-24 04:00 | NUR ---
# 20 gauge angiocath placed to . Use of asceptic technique. Opsite placed over site. Blood return noted. Blood for lab drawn from site. Flushed with 10 cc of normal saline. No evidence of infiltration noted. Patient tolerated well.
--- NOTE | 2022-03-24 04:10 | NUR ---
Pt from home with c/o of abd pain, back pain and chest pain that started yesterday. Pt started groaning in pain when MD entered room. Pt actively gagging into back with emesis output. Pt reports that she was here yesterday and problem did not resolve. Pt poor historian when asked medical history. Pt reminded to remain in bed, bed lowered to lowest position and safety precautions in place.
--- NOTE | 2022-03-24 04:10 | NUR ---
Dr. Sanchez at bedside with patient for evaluation.
--- NOTE | 2022-03-24 04:15 | NUR ---
Pt is dialysis patient and refused urine sample.
[2022-03-24] MEDS ORDERED: DIPHENHYDRAMINE INJ 50 MG/ML VIAL IM ONE (04:30)
[2022-03-24] MEDS ORDERED: MORPHINE SULFATE 10 MG/ML VIAL IVP ONE (04:30)
[2022-03-24] MEDS ORDERED: METOCLOPRAMIDE HCL 10 MG/2 ML VIAL IVP ONE (04:30)
--- NOTE | 2022-03-24 04:48 | NUR ---
PT STILL UNABLE TO PROVIDE URINE SAMPLE FOR URINE PREG. DR. VILLALOBOS MADE AWARE URINE PREG NEEDED FOR CT SCAN. ORDERED FOR CT TO BE DONE WITHOUT URINE PREG.
[2022-03-24] MEDS ORDERED: NACL 0.9% 1,000 ML IV ONE (05:45)
--- NOTE | 2022-03-24 05:54 | NUR ---
PT REFUSING NS BOLUS, STATES SHE DOESNT NEED IT DUE TO DIALYSIS. DR. VILLALOBOS MADE AWARE.
[2022-03-24] MEDS ORDERED: INSULIN REGULAR, HUMAN 100 UNITS in NS 99 ML IV ONE ×2 (06:00)
[2022-03-24] MEDS ORDERED: INSULIN REGULAR, HUMAN 10 UNITS/0.1 ML, 3 ML VIAL IVP ONE (06:00)
[2022-03-24] MEDS ORDERED: INSU100V SQ (06:32)
[2022-03-24] MEDS ORDERED: CARV3.1246 PO (06:32)
--- NOTE | 2022-03-24 06:39 | NUR ---
PT REPORTS SHE GAVE HERSELF INSULIN WITHOUT STAFF KNOWING WHEN GLUCOSE WAS FIRST CHECKED. DR. MARSHALL MADE AWARE.
[2022-03-24] MEDS ORDERED: INSULIN NPH 100 UNITS/ML 10 ML VIAL SUBCUT ONE (06:45)
--- NOTE | 2022-03-24 06:47 | NUR ---
Admit bed requested Patient will be admitted to care of . Admitted to TELE unit. Diagnosis ABDOMINAL PAIN Inpatient (Yes or No) YES Observation (Yes or No) NO Orientation concerns or request close to nursing station (Yes or No) NO Covid Status PENDING On vent or bipap NO Isolation requirements NO Needs a sitter NO From Home (Yes or if No enter name of facility) YES Requires Dialysis (Yes or No) NO Med Rec Completed (Yes of No) PENDING
--- NOTE | 2022-03-24 06:48 | NUR ---
MED REC COMPLETED. INFORMATION PROVIDED BY PATIENT.
--- NOTE | 2022-03-24 06:52 | NUR ---
ED SLIDING SCALE D/C. DR. MARSHALL, ADMITTING MD, ORDER ACCUCHECK Q4H WITH SLIDING SCALE REGULAR INSULIN COVERAGE.
[2022-03-24] MEDS ORDERED: DEXTROSE 50%-WATER 50 ML DISP.SYRIN IVP PRN (07:15)
[2022-03-24] MEDS ORDERED: D5W 1,000 ML IV PRN (07:15)
[2022-03-24] MEDS ORDERED: GLUCOSE (DEXTROSE) ORAL GEL -Adults PO PRN (07:15)
--- NOTE | 2022-03-24 07:15 | NUR ---
Report given to Kartik DENG to assume care.
--- NOTE | 2022-03-24 07:39 | NUR ---
ASSUMED PATIENT CARE AA VOMITING ON ORDER ENTRY SPECIALIST WILL CONTINUE TO MONITOR.
--- NOTE | 2022-03-24 09:14 | NUR ---
Patient will be admitted to care of dr elise. Admitted to unit. Will go to room . Belongings list completed. Complete and up to date summary report printed. SBAR report to be given at bedside with opportunity for questions.
[2022-03-24] MEDS: ONDANSETRON HCL 4 MG/2 ML VIAL IVP PRN ×4 (09:21→22:50)
[2022-03-24] MEDS: DIPHENHYDRAMINE INJ 50 MG/ML VIAL IVP PRN ×4 (09:22→22:49)
[2022-03-24] MEDS: MORPHINE 4 MG INJ. 4 MG/ML VIAL IVP PRN ×4 (09:23→22:49)
[2022-03-24 09:30] VITALS: BP_SYST 177
[2022-03-24] MEDS ORDERED: DIATR MEGLU/DIATRIZ SOD 30 ML SOLUTION PO ONE (09:47)
[2022-03-24] MEDS ORDERED: PANTOPRAZOLE SODIUM 40 MG/VIAL (PROTONIX) IVP ONE (10:15)
--- NOTE | 2022-03-24 10:36 | NUR ---
CONSULT ENDOCRINOLOGY DM DR MARTIN,[facility] [phone] S/W DR MARTIN HE IS AWARE OF CONSULT
--- NOTE | 2022-03-24 10:38 | NUR ---
CONSULT GI INTRACTABLE VOMITING DR LIMA [phone] S/W [facility]
--- NOTE | 2022-03-24 10:39 | NUR ---
CONSULT NEPHROLOGY DIALYSIS DR MASON [phone] S/W [facility] OFFICE
[2022-03-24] MEDS ORDERED: DICYCLOMINE HCL 10 MG CAPSULE PO ONE (11:00)
[2022-03-24] MEDS: cloNIDine HCL 0.2 MG TABLET PO PRN (18:18)
[2022-03-24 19:00] VITALS: BP_SYST 187
--- NOTE | 2022-03-24 19:15 | NUR ---
change of shift.pt.presents renal failure/hemo-dialysis status hx.pt.shnxatim06/02/22.ptrs h?f d acs laoctio';lt bicept.;av-shunt.gruit/thrill resent up[o auscultation.generl;tsus stblerespirpystsitsble;unalbords @room air.pt.capblto ambulate;unasssiatd,coj9axoru.calight/telehpo w/.iacess of thpt.
[2022-03-24 20:00] VITALS: BP_SYST 187
--- NOTE | 2022-03-24 20:00 | NUR ---
pt.assessed.v/s assessed values note b/p status elevated.;nephrology present apprised of the b/p status. apprised that the pt.submitted to hemo-dialysis therapy apprised that 3litres were exchanged.pt.apprised that snacks/bevrages are available w/in the shift.pt.requested ice;provided.pt.capable to reposition self.call light/telephone w/in access of the pt.
[2022-03-24] MEDS: DICYCLOMINE HCL 10 MG CAPSULE PO SCH (21:00)
--- NOTE | 2022-03-24 21:00 | NUR ---
2100p medications administered.pt.capable to ingest the po medications w/out difficulty.no c/o pain,nausea.call light/ telephone w/in access of the pt.
--- NOTE | 2022-03-24 22:00 | NUR ---
pt.assessed.pt.requested medication:morphine,benadryl,zofran;ivp.administered.to assess the efficacy of the pain medication per pain mgx protocol.no additional requests posited@this hour.pt.capable to reposition self.call light/telephone w/in access of the pt.
[2022-03-24] MEDS: INSULIN REGULAR, HUMAN 100 UNITS/ML, 3 ML VIAL (humuLIN R) SUBCUT PRN (23:06)
[2022-03-25] VITALS (7 sets, daily range): BP systolic 138–160
--- NOTE | 2022-03-25 | NUR ---
pt.assessed.v/s assessed note b/p status elevated.catapres:0.2mg administered.to assess the efficacy of the medication per protocol.no c/o pain,nausea.pt.requested:ice,soda,blankets,socks;provided.pt.capable to reposition self.call light/telephone w/in access of the pt.
[2022-03-25] MEDS: cloNIDine HCL 0.2 MG TABLET PO PRN ×2 (00:35→07:06)
--- NOTE | 2022-03-25 02:00 | NUR ---
pt.assessed.pt.quiescent;somnolent.per flacc pain mgx pt.absent facial grimaces/body posturing.pt.capable to reposition self.call light/telephone w/in access of the pt.
--- NOTE | 2022-03-25 03:30 | NUR ---
blood glucose assessed [id number].
--- NOTE | 2022-03-25 04:00 | NUR ---
pt.assessed.v/s assessed values note b/p status.pt.requested medication;morphine,benadryl,zofran;ivp;administered. pt.requested blankets;provided.to assess the efficacy of the pain medication per pain mgx protocol.call light/telephone w/in access of the pt.
[2022-03-25] MEDS: ONDANSETRON HCL 4 MG/2 ML VIAL IVP PRN ×4 (04:04→20:32)
[2022-03-25] MEDS: DIPHENHYDRAMINE INJ 50 MG/ML VIAL IVP PRN ×4 (04:04→20:32)
[2022-03-25] MEDS: MORPHINE 4 MG INJ. 4 MG/ML VIAL IVP PRN ×4 (04:06→20:34)
--- NOTE | 2022-03-25 06:04 | NUR ---
pt.assessed.pt.quiescent;somnolent.per flacc pain mgx pt.absent facial grimaces/body posturing.pt.capable to reposition self.pt.weighed in am 2/t hemo-dialysis.call light/telephone w/in access of the pt.
[2022-03-25] MEDS: INSULIN REGULAR, HUMAN 100 UNITS/ML, 3 ML VIAL (humuLIN R) SUBCUT PRN ×3 (06:38→18:53)
[2022-03-25 07:57] LABS: BASOPHILS # (AUTO) 0.1 K/uL (0.0-0.2); BASOPHILS % (AUTO) 0.8 % (0.0-2.0); EOSINOPHILS # (AUTO) 0.3 K/uL (0.0-0.4); EOSINOPHILS % (AUTO) 2.7 % (0.0-4.0); HEMATOCRIT 31.9 % (36-48); HEMOGLOBIN 10.9 g/dL (12.0-16.0); LYMPHOCYTES % (AUTO) 24.5 % (20.5-51.5); MEAN CORPUSCULAR HEMOGLOBIN 28 pg (27-31); MEAN CORPUSCULAR HGB CONC 34 % (32-36); MEAN CORPUSCULAR VOLUME 83 fL (79.0-98.0); MONOCYTES # (AUTO) 0.9 K/uL (0.0-1.0); MONOCYTES % (AUTO) 7.8 % (1.7-9.3); NEUTROPHILS # (AUTO) 7.7 K/uL (1.8-7.7); NEUTROPHILS % (AUTO) 64.2 % (40.0-70.0); PLATELET COUNT (AUTO) 238 K/uL (130-430); RED BLOOD CELL COUNT(AUTO) 3.87 MIL/uL (4.2-6.2); RED CELL DISTRIBUTION WIDTH 17.3 % (9.0-15.0); WHITE BLOOD COUNT (AUTO) 12.1 K/uL (4.8-10.8)
--- NOTE | 2022-03-25 08:00 | NUR ---
MORNING ROUNDS: PATIENT RESTING DURING ROUNDS. IV AT LEFT FOOT SALINE LOCK. CALL LIGHT WITH IN REACH. BED LOCKED AT LOWEST POSITION. NOT IN ANY DISTRESS.
[2022-03-25 08:12] LABS: ALBUMIN 3.9 g/dL (3.4-4.8); CALCIUM 8.8 mg/dL (8.4-11.0); CREATININE 5.71 mg/dL (0.55-1.30); PHOSPHORUS 5.6 mg/dL (2.7-4.5); TOTAL BILIRUBIN 0.4 mg/dL (0.0-1.0)
[2022-03-25] MEDS ORDERED: INSULIN GLARGINE 100 UNITS/ML, 10 ML VIAL SUBCUT SCH (09:00)
[2022-03-25] MEDS: PANTOPRAZOLE SODIUM 40 MG/VIAL (PROTONIX) IVP SCH (09:01)
[2022-03-25] MEDS: DICYCLOMINE HCL 10 MG CAPSULE PO SCH ×2 (09:01→20:34)
[2022-03-25] MEDS ORDERED: SEVELAMER CARBONATE 800 MG TABLET PO ONE (14:00)
--- NOTE | 2022-03-25 14:47 | NUR ---
BLOOD SUGAR: BS=68MG/DL. PATIENT AWAKE,ALERT AND ORIENTED X4. TOOK 2 CUPS OF ORANG JUICE.WELL TOLERATED.
--- NOTE | 2022-03-25 15:30 | NUR ---
REPEAT BLOOD SUGAR: CHECKED BLOOD CMWUP=169ZA/DL. NOT IN ANY DISTRESS.
--- NOTE | 2022-03-25 15:36 | NUR ---
C/O PAIN,NAUSEA ,ITCHING: DUE IV MORPHINE,ZOFRAN AND BENADRYL GIVEN PER PATIENT'S REQUEST. WITH NO PROBLEM.
--- NOTE | 2022-03-25 18:52 | NUR ---
BLOOD SUGAR: BLOOD FCOPU=803NM/DL,DUE 4 UNITS OF REGULAR INSULIN GIVEN PER SLIDING SCALE. NO PROBLEM.
[2022-03-25] MEDS: SEVELAMER CARBONATE 800 MG TABLET PO SCH (18:56)
--- NOTE | 2022-03-25 23:00 | NUR ---
BS 107. PT GIVEN CRACKERS AND ORANGE JUICE. PT TO BE NPO AFTER MIDNIGHT
[2022-03-26 00:54] VITALS: BP_SYST 140
[2022-03-26] MEDS: DIPHENHYDRAMINE INJ 50 MG/ML VIAL IVP PRN ×2 (02:50→09:44)
[2022-03-26] MEDS: ONDANSETRON HCL 4 MG/2 ML VIAL IVP PRN ×3 (02:51→14:15)
[2022-03-26] MEDS: MORPHINE 4 MG INJ. 4 MG/ML VIAL IVP PRN ×3 (02:52→14:16)
[2022-03-26] MEDS: INSULIN REGULAR, HUMAN 100 UNITS/ML, 3 ML VIAL (humuLIN R) SUBCUT PRN ×3 (03:10→18:52)
--- NOTE | 2022-03-26 07:28 | NUR ---
NO CHANGES IN CONDITION. PT SLEPT THROUGH THE NIGHT. NO INSULIN COVERAGE GIVEN.PT HAS BEEN NPO SINCE MIDNIGHT. ENDORSED CARE TO DAY RN
[2022-03-26 07:38] VITALS: BP_SYST 149
[2022-03-26] MEDS: SEVELAMER CARBONATE 800 MG TABLET PO SCH ×3 (08:00→17:20)
[2022-03-26] MEDS: PANTOPRAZOLE SODIUM 40 MG/VIAL (PROTONIX) IVP SCH (08:30)
[2022-03-26] MEDS: cloNIDine HCL 0.2 MG TABLET PO PRN (08:31)
--- NOTE | 2022-03-26 08:46 | NUR ---
Patient c/o belongings not at bedside. She said her purse "was in ER with meds." Called ER and they said they don't have it. Called security and asked. They didn't have it. Called pharmacy and asked and they said they didn't have it. CASIE Garvin made aware.
[2022-03-26 08:53] LABS: BASOPHILS # (AUTO) 0.1 K/uL (0.0-0.2); BASOPHILS % (AUTO) 0.8 % (0.0-2.0); EOSINOPHILS # (AUTO) 0.5 K/uL (0.0-0.4); EOSINOPHILS % (AUTO) 6.6 % (0.0-4.0); HEMATOCRIT 35.9 % (36-48); HEMOGLOBIN 12.1 g/dL (12.0-16.0); LYMPHOCYTES # (AUTO) 2.6 K/uL (1.0-5.5); LYMPHOCYTES % (AUTO) 34.4 % (20.5-51.5); MEAN CORPUSCULAR HEMOGLOBIN 28 pg (27-31); MEAN CORPUSCULAR HGB CONC 34 % (32-36); MEAN CORPUSCULAR VOLUME 83 fL (79.0-98.0); MONOCYTES % (AUTO) 12.7 % (1.7-9.3); NEUTROPHILS # (AUTO) 3.4 K/uL (1.8-7.7); NEUTROPHILS % (AUTO) 45.5 % (40.0-70.0); PLATELET COUNT (AUTO) 240 K/uL (130-430); RED BLOOD CELL COUNT(AUTO) 4.32 MIL/uL (4.2-6.2); RED CELL DISTRIBUTION WIDTH 17.6 % (9.0-15.0); WHITE BLOOD COUNT (AUTO) 7.5 K/uL (4.8-10.8)
[2022-03-26] MEDS: DICYCLOMINE HCL 10 MG CAPSULE PO SCH ×2 (09:00→14:20)
[2022-03-26] MEDS ORDERED: INSULIN GLARGINE 100 UNITS/ML, 10 ML VIAL SUBCUT SCH (09:00)
[2022-03-26] MEDS: CHOLECALCIFEROL (VITAMIN D3) 2,000 UNIT TABLET PO SCH ×2 (09:00→14:20)
[2022-03-26 09:22] LABS: ALBUMIN 3.4 g/dL (3.4-4.8); CALCIUM 8.4 mg/dL (8.4-11.0); CREATININE 6.55 mg/dL (0.55-1.30); TOTAL BILIRUBIN 0.3 mg/dL (0.0-1.0)
--- NOTE | 2022-03-26 09:25 | NUR ---
Called security to ask about the black bag that the patient said she brought in to ER. Security was able to bring black bag to patient's room. Labels placed on bag. Patient and patient's significant other witnessed the bag.
--- NOTE | 2022-03-26 10:09 | NUR ---
Patient unable to do MRCP due to "nerves." Dr. Dougherty made aware of situation.
[2022-03-26] MEDS ORDERED: LORazepam 2 MG/ML VIAL IVP ONE (10:15)
[2022-03-26 12:00] VITALS: BP_SYST 151
--- NOTE | 2022-03-26 13:00 | NUR ---
Patient underwent MRCP
--- NOTE | 2022-03-26 13:50 | NUR ---
[facility]
[2022-03-26 15:20] VITALS: BP_SYST 170
--- NOTE | 2022-03-26 15:25 | NUR ---
Patient undergoing hemodialysis at the moment.
[2022-03-26 18:46] VITALS: BP_SYST 104
--- NOTE | 2022-03-26 18:46 | NUR ---
Patient finished dialysis. 2L out. Vital signs stable.
--- NOTE | 2022-03-26 19:23 | NUR ---
Report given to night assistant RN for continuity of care. Patient stable condition.
--- NOTE | 2022-03-26 19:31 | NUR ---
Patient said she wanted to sign out AMA. Patient appeared lethargic. Explained that patient would have to be clear and awake to sign out. Patient's came to see patient at bedside.
[2022-03-26 21:23] VITALS: BP_SYST 163
--- NOTE | 2022-03-26 21:33 | NUR ---
pt requesting to go ama. iv removed in L foot. pt Ryan at bedside. Pt aox4 and not appearing to be lethargic. pt advised on leaving ama. pt verbalized understanding of risk about leaving ama.
--- NOTE | 2022-03-26 21:43 | NUR ---
pt left ama. pt ambulated to parking lot with . Dr. Dougherty notified.
[2022-04-02] MEDS ORDERED: METO-290 PO (11:18)
[2022-04-02] MEDS ORDERED: Bisacodyl Suppository RC (11:18)
[2022-04-02] MEDS ORDERED: INSU100V SUBCUT (11:18)
[2022-04-02] MEDS ORDERED: INSU100V9 SUBCUT (11:18)
[2022-04-02] MEDS ORDERED: CLON0.1T PO (11:18)
[2022-04-02] MEDS ORDERED: COR12.5 PO (11:18)
[2022-04-02] MEDS ORDERED: LISI10TA29 PO (11:18)
[2022-04-02] MEDS ORDERED: HYDR-3927 PO (11:22)
== END 2022-03-26 21:44 | disposition left against medical advice (07) | DRG 48 ==
LOC: SED 23:34 → STU 03-24 06:40
PROVIDERS: ADMIT Internal Medicine; ATTEND Internal Medicine
PROC: 5A1D70Z Performance of Urinary Filtration, Intermittent, Less than 6 Hours Per Day (ICD-10-PCS; principal; 2022-03-24)
PROC: 5A1D70Z Performance of Urinary Filtration, Intermittent, Less than 6 Hours Per Day (ICD-10-PCS; 2022-03-25)
PROC: 5A1D70Z Performance of Urinary Filtration, Intermittent, Less than 6 Hours Per Day (ICD-10-PCS; 2022-03-26)
DX: E11.43 Type 2 diabetes mellitus with diabetic autonomic (poly)neuropathy (principal); E87.1 Hypo-osmolality and hyponatremia; I12.0 Hypertensive chronic kidney disease with stage 5 chronic kidney disease or end stage renal disease; E11.22 Type 2 diabetes mellitus with diabetic chronic kidney disease; K31.84 Gastroparesis; E55.9 Vitamin D deficiency, unspecified; Z20.822 Contact with and (suspected) exposure to COVID-19; N18.6 End stage renal disease; Z79.4 Long term (current) use of insulin; Z99.2 Dependence on renal dialysis; Z90.49 Acquired absence of other specified parts of digestive tract
CPT/HCPCS: 36415; 74018; 74181; 76376; 80053; 82009; 82150; 82962; 83036; 83690; 84100; 84702; 85025; 87081; 90937; 96361; 96374; 96375; 96376; 99284; 99285; C9113; G0378; J0780; J1200; J1630; J1815; J2060; J2270; J2405; J2550; J2765; J7030; Q9964